=== PATIENT | female | born 1995 | race Caucasian/White ===

== ENCOUNTER 2016-12-20 08:48 | Emergency (ER) | payer BC ==
[2016-12-20 08:53] VITALS: BP 144/100
--- NOTE | 2016-12-20 09:18 | ED ---
Lower Extremity - HPI Summary HPI Summary: Patient presents with right ankle pain and swelling after rolling the ankle when she stepped out of her car in [facility] parking lot. She had immediate pain and swelling but was able to drive herself to the ED. She feels she has mild altered sensation in the foot. She has a history of multiple bilateral ankle injuries and pain. - History of Current Complaint Chief Complaint: EDExtremityLower Stated Complaint: RIGHT ANKLE INJURY Time Seen by Provider: 12/20/16 09:06 Hx Obtained From: Patient Hx Last Menstrual Period: 03/29/16 Mechanism Of Injury: Twisted Onset of Pain: Immediate Onset/Duration: Minutes Severity Initially: Severe Severity Currently: Severe Pain Intensity: 9 Timing: Constant Location: Is Discrete @ - right ankle Character Of Pain: Sharp, Aching, Stiffness Associated Signs And Symptoms: Positive: Swelling Aggravating Factor(s): Standing, Movement Alleviating Factor(s): Rest Able to Bear Weight: No - Allergies/Home Medications Allergies/Adverse Reactions: Allergies Allergy/AdvReac Type Severity Reaction Status Date / Time Ketorolac Tromethamine Allergy Severe See Comment Verified 12/20/16 09:28 [From Toradol] Oxycodone [From Percocet] Allergy Severe seizure-like Verified 12/20/16 09:28 activity Cefprozil [From Cefzil] Allergy Hives Verified 12/20/16 09:28 Codeine Allergy See Comment Verified 12/20/16 09:28 Tramadol Allergy See Comment Verified 12/20/16 09:28 PMH/Surg Hx/FS Hx/Imm Hx Endocrine/Hematology History: Reports: Hx Anemia - CHRONIC- ON IRON Denies: Hx Bone Marrow Disease, Hx Diabetes, Hx Sickle Cell Disease, Hx Thyroid Disease Cardiovascular History: Denies: Hx Congestive Heart Failure, Hx Deep Vein Thrombosis, Hx Hypertension , Hx Myocardial Infarction, Hx Pacemaker/ICD Respiratory History: Reports: Hx Asthma Denies: Hx Chronic Obstructive Pulmonary Disease (COPD), Hx Lung Cancer, Hx Pneumonia, Hx Pulmonary Embolism GI History: Reports: Other GI Disorders - OCC HEARTBURN Denies: Hx Gall Bladder Disease, Hx Gastrointestinal Bleed, Hx Ulcer, Hx Urosepsis History: Denies: Hx Kidney Stones, Hx Renal Disease Sensory History: Reports: Hx Contacts or Glasses - CONTACTS Denies: Hx Hearing Aid Opthamlomology History: Reports: Hx Contacts or Glasses - CONTACTS Neurological History: Reports: Hx Migraine, Hx Seizures - She has seizures with narcotics. Denies: Hx Dementia, Hx Transient Ischemic Attacks (TIA) Psychiatric History: Reports: Hx Depression - ON LEXAPRO FOR PP DEPRESSION Denies: Hx Anxiety, Hx Panic Disorder, Hx Schizophrenia, Hx Bipolar Disorder - Surgical History Surgery Procedure, Year, and Place: tonsillectomy 1998. 08/11/13. nerve decompression 02/06/14 OF ANKLE Hx Anesthesia Reactions: Yes - EPIDURAL WITH CSECTION "DIDNT WORK" NEEDED GENERAL ANESTHESIA - Immunization History Date of Tetanus Vaccine: UTD Date of Influenza Vaccine: NONE Infectious Disease History: No Infectious Disease History: Denies: Hx Clostridium Difficile, Hx Hepatitis, Hx Human Immunodeficiency Virus (HIV), Hx of Known/Suspected MRSA, Hx Shingles, Hx Tuberculosis, Hx Known/ Suspected VRE, Hx Known/Suspected VRSA, History Other Infectious Disease, Traveled Outside the in Last 30 Days - Family History Known Family History: Positive: Hypertension - Social History Occupation: Employed Full-time Lives: With Family Alcohol Use: Rare Substance Use Type: Reports: None Smoking Status (MU): Heavy Every Day Tobacco Smoker Type: Cigarettes Amount Used/How Often: 3-4 CIG/DAY Have You Smoked in the Last Year: Yes Cessation Counseling: Patient Advised to Stop Review of Systems Positive: Myalgia, Decreased ROM, Edema Negative: Paresthesia, Numbness All Other Systems Reviewed And Are Negative: Yes Physical Exam Triage Information Reviewed: Yes Vital Signs On Initial Exam: Initial Vitals Temp Pulse Resp BP Pulse Ox 98.5 F 102 16 144/100 100 12/20/16 08:50 12/20/16 08:50 12/20/16 08:50 12/20/16 08:50 12/20/16 08:50 Vital Signs Reviewed: Yes Appearance: Positive: Well-Appearing, Pain Distress, Obese Skin: Positive: Warm, Skin Color Reflects Adequate Perfusion, Dry, Soft Head/Face: Positive: Normal Head/Face Inspection Eyes: Positive: EOMI, RENATO, Conjunctiva Clear ENT: Positive: Hearing grossly normal Respiratory/Lung Sounds: Positive: Breath Sounds Present Cardiovascular: Positive: RRR Musculoskeletal: Positive: Limited @ - movement in all planes restricted due to pain, Pain @ - TTP lateral malleoli, Edema Right - lateral aspect Neurological: Positive: Sensory/Motor Intact, Alert, Oriented to Person Place, Time, NV Bundle Intact Distally, Unable to Assess Gait Psychiatric: Positive: Affect/Mood Appropriate AVPU Assessment: Alert Diagnostics - Vital Signs Vital Signs Temp Pulse Resp BP Pulse Ox 12/20/16 08:53 98.5 F 102 18 144/100 100 12/20/16 08:50 98.5 F 102 16 144/100 100 - Laboratory Lab Statement: Any lab studies that have been ordered have been reviewed, and results considered in the medical decision making process. - Radiology No standard instances Xray Interpretation: No Acute Changes Radiology Interpretation Completed By: Radiologist Lower Extremity Course/Dx - Diagnoses Differential Diagnosis/HQI/PQRI: Positive: Arthritis, Bursitis, Contusion, Dislocation, Fracture (Closed), Sprain, Strain Provider Diagnoses: Right ankle sprain Discharge - Discharge Plan Condition: Stable Disposition: HOME Patient Education Materials: Ankle Sprain (ED) Forms: *Work Release Referrals: Alyce Navarro NP [Primary Care Provider] - Additional Instructions: Wear your splint to protect you as your pain improves. Come out of the splint several times daily to perform gentle range of motion exercises to avoid stiffness. Elevate your ankle above your heart and apply ice for 20 minutes several times daily to decrease swelling and pain. Use ibuprofen 600mg three times daily with meals for the next 5-7 days to decrease swelling and pain as well. Follow-up with your primary care provider in 7-10 days if your symptoms do not begin to improve. Return to the emergency department if your symptoms worsen.
[2016-12-20] MEDS ORDERED: Ondansetron ODT TAB* 4 MG PO ONE (09:32)
[2016-12-20] MEDS ORDERED: HYDROcodone/ACETAMIN 5-325 MG* 1 TAB PO ONE (09:32)
--- NOTE | 2016-12-20 09:59 | RAD ---
INDICATION: Right ankle injury. TECHNIQUE: 3 views of the right ankle were obtained. FINDINGS: Soft tissue swelling is noted along the anterolateral aspect of the ankle. There is an osteochondral lesion involving the superior lateral articular surface of the talus. There is a fracture fragment in place which appears nondisplaced measuring 5 x 2.5 mm in size. Joint spaces appear maintained. IMPRESSION: OSTEOCHONDRAL FRACTURE OF THE ANTEROLATERAL TALUS.
== END 2016-12-20 11:12 | disposition home or self-care (01) ==
LOC: ED 08:48
DX: S93.401A Sprain of unspecified ligament of right ankle, initial encounter (principal); X50.9XXA Other and unspecified overexertion or strenuous movements or postures, initial encounter; F32.9 Major depressive disorder, single episode, unspecified; F17.210 Nicotine dependence, cigarettes, uncomplicated; D64.9 Anemia, unspecified; Y92.481 Parking lot as the place of occurrence of the external cause; Z88.5 Allergy status to narcotic agent
CPT/HCPCS: 99282; A9270-GY

== ENCOUNTER 2017-07-25 12:51 | Emergency (ER) | payer BC ==
[2017-07-25 13:14] VITALS: BP 136/77
--- NOTE | 2017-07-25 13:30 | UC ---
Lower Extremity/Ankle HPI - HPI Summary HPI Summary: 21 y/o female presents to the urgent care c/o Rt ankle pain and swelling s/p getting out of the bath tubs and twisting her ankle last night. Pt reports she has Hx of 3 fractures to Rt ankle, one is 2010, 07/2013 and 12/2016. She was just finished PT. Pt states pain is sharp, 8/10 with movement with mild numbness an tinglin over the pinky toe. Pt took ibuprofen 800mg PO last night and applied ice. Pt is able to bear weight. Pt denies fever, redness, SOB, chest pain, abdominal pain, N/V/D. LMP: 07/09/2017, declines test. - History of Current Complaint Chief Complaint: UCLowerExtremity Stated Complaint: ANKLE INJURY Time Seen by Provider: 07/25/17 13:29 Hx Obtained From: Patient Hx Last Menstrual Period: 2 weeks ago ?: No Onset/Duration: Sudden Onset, Lasting Days - 1 day, Still Present, Worse Since - last night Severity Initially: Moderate Severity Currently: Moderate Pain Intensity: 8 Pain Scale Used: 0-10 Numeric Aggravating Factor(s): Ambulation Alleviating Factor(s): Rest, Ice, OTC Meds Able to Bear Weight: Yes - Risk Factors Gout Risk Factors: Negative DVT Risk Factors: Negative Septic Arthritis Risk Factor: Negative - Allergies/Home Medications Allergies/Adverse Reactions: Allergies Allergy/AdvReac Type Severity Reaction Status Date / Time Cefprozil [From Cefzil] Allergy Hives Verified 07/25/17 13:14 Ketorolac Tromethamine AdvReac Severe See Comment Verified 07/25/17 13:14 [From Toradol] Oxycodone [From Percocet] AdvReac Severe seizure-like Verified 07/25/17 13:14 activity Codeine AdvReac See Comment Verified 07/25/17 13:14 Tramadol AdvReac See Comment Verified 07/25/17 13:14 Home Medications: Home Medications metFORMIN* [Glucophage 500 MG TAB *] 500 mg PO BID 07/25/17 [History Confirmed 07/25/17] PMH/Surg Hx/FS Hx/Imm Hx Previously Healthy: Yes Other Endocrine History: PCOS Other History Of: Negative For: HIV, Hepatitis B, Hepatitis C - Surgical History Surgical History: Yes Surgery Procedure, Year, and Place: tonsillectomy 1998. 08/11/13. nerve decompression 02/06/14 OF LEFT ANKLE - Family History Known Family History: Positive: Hypertension, Diabetes - Social History Lives: With Family Alcohol Use: Rare Substance Use Type: None Smoking Status (MU): Heavy Every Day Tobacco Smoker Type: Cigarettes Amount Used/How Often: 1/2 PPD DAY Have You Smoked in the Last Year: Yes Review of Systems Constitutional: Negative Skin: Negative Eyes: Negative ENT: Negative Respiratory: Negative Cardiovascular: Negative Gastrointestinal: Negative Genitourinary: Negative Motor: Decreased ROM - RT ankle Neurovascular: Negative Musculoskeletal: Other: - RT ankle pain and swelling Neurological: Negative Psychological: Negative Is Patient Immunocompromised?: No All Other Systems Reviewed And Are Negative: Yes Physical Exam Triage Information Reviewed: Yes Vital Signs: Initial Vital Signs Temp 97.7 F 07/25/17 13:11 Pulse 78 07/25/17 13:11 Resp 18 07/25/17 13:11 BP 136/77 07/25/17 13:11 Pulse Ox 100 07/25/17 13:11 - Additional Comments Vital Signs Reviewed: Yes General: well developed, well nourished female, sitting in the examining table w /o any apparent distress Eyes: Positive: Conjunctiva Clear - PERRLA, EOMI, ENT: Positive: Normal ENT inspection, Hearing grossly normal, Pharynx normal, TMs normal Neck: Positive: Supple, Nontender, No Lymphadenopathy Respiratory: Positive: Chest non-tender, Lungs clear, Normal breath sounds, No respiratory distress Cardiovascular: Positive: RRR, No Murmur, Pulses Normal, Brisk Capillary Refill Abdomen Description: Positive: Nontender, No Organomegaly, Soft. Negative: CVA Tenderness (R), CVA Tenderness (L) Bowel Sounds: Positive: Present Musculoskeletal: - RT Ankle: Pt is able to bear weight and ambulate w/ limping. The R ankle is without obvious asymmetry or deformity when compared to the L ankle. Decrease ROM due to pain. Moderate swelling on both malleollus with tenderness to palpation. No ecchymosis or bruising observed. Talar tilt test is negative for ligament laxity to valgus or varus stress. Negative anterior drawer. Peroneal nerve is intact with strong eversion and plantar flexion. Positive sensation over the Rt foot and Rt ankle, positive pulses, decree sensation over the #5th toe, positive capillary refill intact Neurological Exam: Normal Psychological Exam: Normal Skin: warm and dry Lower Extremity Course/Dx - Course Course Of Treatment: 21 y/o female presents to the urgent care c/o Rt ankle pain and swelling s/p getting out of the bath tubs and twisting her ankle last night. Pt reports she has Hx of 3 fractures to Rt ankle, one is 2010, 07/2013 and 12/2016. She was just finished PT. Pt states pain is sharp, 8/10 with movement with mild numbness an tinglin over the pinky toe. Pt took ibuprofen 800mg PO last night and applied ice. Pt is able to bear weight. Pt denies fever , redness, SOB, chest pain, abdominal pain, N/V/D.LMP: 07/09/2017, declines test. Hx obtained. Rt ankle X-ray ordered, Impression: No Soft tissue swelling, no acute fracture. Pt most likely with a RT ankle Sprain. Pt immobilized with gel ankle splint to , advised to use her crutches at home to avoid weight bearing, Rx Ibuprofen PO to decrease swelling and pain. Pt advised RICE, take Ibuprofen PO for pain and to f/u with PCP on orthopedic Dr Crane in 1 week if not improvement of symptoms for further treatment. Pt understood and agreed with D/C instructions. Pt given excuse for work. - Differential Dx/Diagnosis Differential Diagnosis/HQI/PQRI: Arthritis, Contusion, Fracture (Closed), Sprain , Strain, Tendonitis Provider Diagnoses: 1- Acute RT ankle pain s/p injury Discharge - Discharge Plan Condition: Stable Disposition: HOME Prescriptions: Ibuprofen TAB* [Motrin TAB* 800 MG] 800 mg PO Q6H PRN #20 tab PRN Reason: Pain Patient Education Materials: Ankle Sprain (ED) Forms: *Work Release Referrals: Soham Crane MD [Medical Doctor] - 1 Week Alyce Navarro NP [Primary Care Provider] - 2 Days Additional Instructions: 1-Please take medications as directed to alleviate pain and swelling. 2-Please apply ice, keep your ankle immobilized with the Mingo bandage. Use your crutches to avoid weight bearing. Avoid strenuous exercise or standing for long periods of time 3- Please f/u with your PCP in 2-3 days if not improvement of symptoms for further evaluation and treatment. 4- If you develop fever, severe pain with swelling please go immediately to the ER for further management
[2017-07-25] MEDS ORDERED: Ibuprofen TAB* 400 MG PO ONE (13:42)
--- NOTE | 2017-07-25 14:04 | RAD ---
HISTORY: Right ankle pain, injury COMPARISONS: February 17, 2017 VIEWS: 3, Frontal, lateral, and oblique views of the right ankle FINDINGS: BONE DENSITY: Normal. BONES: There is no displaced fracture. JOINTS: There is no arthropathy. ALIGNMENT: There is no dislocation. SOFT TISSUES: Unremarkable. OTHER FINDINGS: None. IMPRESSION: NO ACUTE OSSEOUS INJURY. IF SYMPTOMS PERSIST, RECOMMEND REPEAT IMAGING.
== END 2017-07-25 14:40 | disposition home or self-care (01) ==
LOC: UCEAST 12:51
DX: M25.571 Pain in right ankle and joints of right foot (principal); X50.0XXA Overexertion from strenuous movement or load, initial encounter; Y93.89 Activity, other specified; Y92.002 Bathroom of unspecified non-institutional (private) residence as the place of occurrence of the external cause; Y99.9 Unspecified external cause status; Z87.81 Personal history of (healed) traumatic fracture; Z72.0 Tobacco use
CPT/HCPCS: 99213; A9270-GY; G0463

== ENCOUNTER 2017-09-11 09:28 | Emergency (ER) | payer BC ==
--- OUTSIDE RECORDS SUMMARY | 2017-09-11 09:34 | XMS REPORT ---
:1995 External Reference #:[id number] Author Organization [facility] Address [address] [address] Phone [phone] Care Team Providers Name Role Phone Alyce Navarro NP Primary Care Physician Unavailable Payers Type Date Identification Numbers Payment Subscriber Provider Health Maintenance Effective: Policy Number: [employer] [facility] Feng Pineda [facility] [place] [place] 08/09/2016 [id number] Group Number: [id number] [address] [address] PayID: [id number] CHANTAL Yadav 12785 Medigap Part B Expires: 08/08/2016 Policy Number: [employer] [facility] Feng Pineda [id number] [facility] Group Number: [id number] [address] [address] PayID: [id number] CHANTAL Yadav 18427 Problems Date Description Provider Status Onset: 09/07/2017 Difficulty breathing Med Ervin M.D. Active Onset: 09/07/2017 Insomnia Med Ervin M.D. Active Onset: 09/07/2017 Seizure Med Ervin M.D. 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 ETOH Use Denies alcohol use Smoking Patient is a current smoker, smokes 1/2 pack per day every day Recreational Drug Use Denies Drug Use Exercise Type/Frequency Does not exercise Allergies, Adverse Reactions, Alerts Date Description Reaction Status Severity Comments 11/17/2013 Tramadol active 11/17/2013 Toradol active 11/17/2013 Dilaudid active 11/17/2013 Percocet active 11/17/2013 Oxycodone active 11/17/2013 Cefzil active 11/17/2013 Epidural Medication active 12/23/2016 Codeine active Medications Medication Date Status Form Strength Qnty SIG Indications Ordering Provider Ibuprofen 04/30/ Active Tablets 800mg 90tabs by mouth Unknown 2015 three times a day as needed Topiramate 09/04/ Active Tablets 100mg 60tabs take one Miguelopher 2015 tablet by Shorty Ervin mouth twice a day Metformin / Active Tablets 500mg 1 by mouth Unknown HCL 0000 twice a day Lisinopril-H / Active Tablets 10-12.5mg 1 by mouth Unknown ydrochloroth 0000 every day iazide Ventolin 04/30/ Hx Nebulizer 0.083% Q4H Unknown 2015 - 2016 Advair 04/30/ Hx Aerosol 250-50mcg/ 1units Twice Unknown Diskus 2016 - Dose Daily prn 2016 Lake 02/14/ Hx Tablets 5-325mg 60tabs take 08/10 Vimal 2013 - to one tab Shorty Barnett 12/22/ every 4-6 2017 hours as needed for pain Trinessa / Hx Tablets 0.18/0.215 1 tablet Unknown (28) 0000 - /0.25 each day 12/22/ mg-35 mcg 2016 Lexapro / Hx Tablets 20mg 1 by mouth Unknown 0000 - every day 2016 Iron / Hx Tablets 325 1 by mouth Unknown 0000 - every day 2016 Magnesium / Hx Capsules 500-3000-1 Unknown & 0000 - 50mg-Unit- Vitamin 12/21/ mg D3/Turmeric 2016 Hydrocodone- / Hx Tablets 5-325mg 30tabs 1 tab po q Vimal Acetaminophe 0000 - 6 hours Shorty Branett n 12/29/ prn 2016 Zofran // Hx Tablets 4mg take 1 by Unknown 0000 - mouth 02/15/ twice a 2017 day as needed for nausea Nuvaring / Hx Ring 0.12-0.015 Insert One Unknown 0000 - mg/24HR Ring 07/10/ Vaginally 2017 Every Three Weeks as Directed Vital Signs Date Vital Result Comment 09/07/2017 Height 67 inches 5'7" Weight 235.00 lb Heart Rate 88 /min BP Systolic 122 mmHg BP Diastolic 70 mmHg Respiratory Rate 16 /min BMI (Body Mass Index) 36.8 kg/m2 04/28/2017 Height 67 inches 5'7" Weight 250.00 lb Heart Rate 76 /min BP Systolic Sitting 116 mmHg BP Diastolic Sitting 78 mmHg Respiratory Rate 20 /min Pain Level 0 BMI (Body Mass Index) 39.2 kg/m2 03/17/2017 Height 67 inches 5'7" Weight 250.00 lb Heart Rate 78 /min BP Systolic Sitting 102 mmHg BP Diastolic Sitting 64 mmHg Respiratory Rate 12 /min Pain Level 7 BMI (Body Mass Index) 39.2 kg/m2 02/17/2017 Height 67 inches 5'7" Weight 247.00 lb Heart Rate 64 /min BP Systolic Sitting 130 mmHg BP Diastolic Sitting 80 mmHg Respiratory Rate 20 /min Pain Level 8 BMI (Body Mass Index) 38.7 kg/m2 02/03/2017 Height 67 inches 5'7" Weight 250.00 lb BP Systolic 116 mmHg BP Diastolic 68 mmHg Respiratory Rate 17 /min Pain Level 9 BMI (Body Mass Index) 39.2 kg/m2 12/30/2016 Height 67 inches 5'7" Weight 250.00 lb Heart Rate 83 /min BP Systolic Sitting 122 mmHg BP Diastolic Sitting 72 mmHg Respiratory Rate 16 /min Pain Level 6 sitting BMI (Body Mass Index) 39.2 kg/m2 12/23/2016 Height 67 inches 5'7" Weight 250.00 lb Heart Rate 77 /min BP Systolic Sitting 116 mmHg BP Diastolic Sitting 74 mmHg Respiratory Rate 16 /min Pain Level 10 BMI (Body Mass Index) 39.2 kg/m2 12/20/2016 Height 67 inches Weight 250.00 lb Heart Rate 102 /min BP Systolic 144 mmHg BP Diastolic 100 mmHg Respiratory Rate 18 /min Body Temperature 98.5 F O2 % BldC Oximetry 100 % BMI (Body Mass Index) 39.1 kg/m2 03/13/2014 Height 67 inches 5'7" Weight 226.00 lb Heart Rate 69 /min BP Systolic 132 mmHg BP Diastolic 55 mmHg BMI (Body Mass Index) 35.4 kg/m2 03/02/2014 Height 67 inches 5'7" Weight 226.00 lb Body Temperature 99.0 F BMI (Body Mass Index) 35.4 kg/m2 02/14/2014 Height 67 inches 5'7" Weight 220.00 lb BMI (Body Mass Index) 34.5 kg/m2 01/04/2014 Height 67 inches 5'7" Heart Rate 68 /min BP Systolic 123 mmHg BP Diastolic 82 mmHg 11/30/2013 Height 67 inches 5'7" Weight 200.00 lb Heart Rate 66 /min BP Systolic 126 mmHg BP Diastolic 74 mmHg BMI (Body Mass Index) 31.3 kg/m2 11/17/2013 Height 67 inches 5'7" Weight 194.00 lb Heart Rate 81 /min BP Systolic 114 mmHg BP Diastolic 67 mmHg BMI (Body Mass Index) 30.4 kg/m2 Results Test Date Test Result H/L Range Note Laboratory test finding 02/26/2014 Urine Negative Negative 1 1 If is still suspected, please repeat test after 48 to 72 hours. This test detects intact HCG only and is indicated for the early detection of . Procedures Date CPT Code Description Status 02/17/2017 97178 Rad Exam; Ankle Limited Completed 12/23/2016 47485 Rad Exam; Foot Comp Completed 12/23/2016 19325 Short Leg Cast Completed 02/26/2014 82753 Decompress Nerve Unspec Completed 02/26/2014 69097 Decompress Nerve Unspec Completed Encounters Type Date Location Provider CPT E/M Dx Office Visit 09/07/2017 [facility] Med Ervin, 28155 G43.719 8:30a [facility] R56.9 G47.00 R06.83 Office Visit 04/28/2017 1:00p [facility] Barnett 63850 S93.401[facility] Office Visit 03/17/2017 1:00p [facility] Barnett 48902 S93.401D [facility] M76.71 Office Visit 02/17/2017 1:15p [facility] Barn[facility] 40017 S93.401D [facility] Office Visit 02/03/2017 3:15p [facility] 52644 M93.271 [facility] 12/30/2016 1:45p [facility] Barn[facility] 86913 M93.271 [facility] S93.401D Office Visit 12/23/2016 10:30a [facility] Barn[facility], 32718 M93.271 [facility] Office Visit 01/04/2014 1:30p [facility] Barn[facility], 57711 355.6 [facility] [place] Office Visit 11/30/2013 1:30p [facility], 50612 719.47 C.[facility] Office Visit 11/17/2013 10:00a [facility], 18445 719.47 C.[facility]. [facility] Plan of Care Future Appointment(s):10/18/2017 9:15 am - Med Ervin M.D. at [place]09/07/2017 - Med Ervin M.D.G43.719 Chronic migraine w/o aura, intractable, w/o stat migrNew Labs:Topamax (Topiramate)Basic Metabolic PanelFollow up:Follow up 4 weeks after irrmbopO12.9 Unspecified convulsionsNew Xrays:MRI Brain W/ONew Orders:EEG, QawebrgA01.00 Insomnia, unspecifiedNew Orders:Sleep StudyReferral:Ana Redding MD, Pulmonary WudeyqvlR04.83 SnoringReferral:Ana Redding MD, Pulmonary Diseases
--- OUTSIDE RECORDS SUMMARY | 2017-09-11 09:35 | XMS REPORT ---
:1995 External Reference #:[id number] Author Organization [facility] Address [address] [place] [id number] Phone [phone] Care Team Providers Name Role Phone Alyce Naavrro N.P. Care Team Information Strap Stitcher Unavailable Payers Type Date Identification Numbers Payment Provider Subscriber Health Maintenance Effective: Policy Number: [facility] Setup ([facility]) 08/09/2013 [id number] Group Number: [id number] [address] PayID: [id number] [place] [phone] Health Maintenance Effective: Policy Number: [facility] Enzo/FHP/CHP Effie Willams [facility] ([facility]) 03/09/2013 [id number] Expires: 11/06/2013 Group Number: [id number] [address] PayID: [id number] [place] [place] [phone] Problems Date Description Provider Status Onset: 08/13/2014 Pleurisy Alyce Navarro, N.P. Active Onset: 08/22/2015 Asthma Alyce Navarro, N.P. Active Onset: 08/22/2015 Tobacco user Alyce Navarro, N.P. Active Onset: 09/02/2015 Migraine Alyce Navarro, N.P. Active Onset: 09/08/2016 Polycystic ovaries Alyce Navarro, N.P. Active Onset: 08/30/2017 Obesity Alyce Navarro, N.P. Active Family History Date Family Member(s) Problem(s) Comments Father Unknown Mother Good Health First Daughter Good Health First Brother Good Health Paternal Grandfather Melanoma Paternal Grandfather also great pat garndmother had melanoma Maternal Grandmother Melanoma Social History Type Date Description Comments Lives With Boyfriend Lives With Brother Lives With Mother Lives With Stepfather Lives With Daughter Maicol Anton Jr. Cigarette Use current cigarette smoker Smoking Patient is a current smoker, smokes every day Allergies, Adverse Reactions, Alerts Date Description Reaction Status Severity Comments 12/21/2006 Cefzil active 04/28/2011 Codeine active 05/09/2012 Tramadol active 12/27/2013 Toradol active Medications Medication Date Status Form Strength Qnty SIG Indications Ordering Provider Lisinopril-[place] 08/30 Active Tablets 10-12.5mg 30tabs 1 by Ramon chlorothi mouth Mashelle, every day N.P. Metformin HCL 06/22 Active Tablets 500mg 60tabs take one tablet by Alyce, mouth N.P. twice a day Topiramate Active Tablets 100mg 1 po bid Lisinopril 08/16 Hx Tablets 10mg 30tabs 1 by mouth Mashelle, - every day N.P. 08/30 Sulfamethoxazole 05/03 Hx Tablets 800-160mg 20tabs 1 by Ramon /Trimethoprim mouth Massalazarle, - twice a N.P. Metrogel-Vaginal 09/10 Hx Gel 0.75% 70gm one appl per Alyce, - vagina N.P. 06/07 night at bedtime x 5d Work Note 09/08 Hx no work today Alyce, - (09/08/16) N.P. 06/07 medical reasons may return to [employer] work tomorrow (09/09/16) Nuvaring 09/08 Hx Ring 0.12-0.01 1units insert 1 5mg/24HR ring Alyce, - vaginally N.P. 06/07 every weeks as directed Work Note 02/12 [facility] N.P. 09/08 alberto work on 02/17/16 Topamax 08/22 Hx Tablets 25mg 60tabs 1 by mouth Massuresh, - twice a N.P. Avelox 08/13 Hx Tablets 400mg 10tabs 1 by mouth Mashelle, - every day N.P. 08/22 x 10 days Tessalon 08/13 Hx Capsules 200mg 30caps 1 by mouth Mashelle, - three N.P. 08/22 times a day prn cough Augmentin 05/17 Hx Tablets 875-125mg 20tabs 1 po bid x 10 days Massalazarle, - N.P. 08/13 Zithromax Z-Carrillo 01/16 Hx Tablets 250mg 1Pak as directed Massuresh, - N.P. 05/17 Robitussin DM 01/16 Hx Syrup 100-10mg/ 237ml 1-2 5ML teaspoons Alyce, - q 4-6h N.P. 08/13 prn cough Physical Therapy 12/03 Hx eval and treat r Alyce, - shoulder N.P. 08/13 pain Work Note 12/03 Hx no work 12/03/14-5 Alyce, - /11/21 N.P. 12/10 Ibuprofen 12/03 Hx Tablets 600mg 24tabs 1 by mouth Mashelle, - four N.P. 06/07 times day with food Cyclobenzaprine 11/30 Hx Tablets 10mg 15tabs take one tablet by Massuresh, - mouth N.P. 12/03 times a day Indomethacin 11/30 Hx Capsules 50mg 30caps 1 by mouth Mashelle, - three N.P. 11/30 times a day with food Prednisone 11/30 Hx Tablets 10mg 30tabs 4 by mouth x 3 Mashelle, - days, N.P. 11/30 then 3 by mouth x 3 days then 2 by mouth x 3 days then 1 by mouth x 3 days Prednisone 11/30 Hx Tablets 50mg 3tabs 1 by mouth Mashelle, - every day N.P. 12/03 x 3 Work Note 10/31 Hx no work 03/18-03/19 Mashelle, - /15 N.P. 08/13 Prozac 10/18 Hx Capsules 20mg 30caps 1 by mouth Mashelle, - every day N.P. 08/22 Nuvaring 10/18 Hx Ring 0.12-0.01 3units insert 5mg/24HR one ring Massuresh, - vaginally N.P. 02/12 three weeks Advair Diskus 08/13 Hx Aerosol 250-50mcg sample 1 inhale /Dose twice a Mashelle, - day N.P. 06/07 Proair HFA 08/13 Hx Aerosol 108(90Bas 1units 2 puffs e) four Mashelle, - mcg/Act times a N.P. 06/07 day needed Avelox 08/13 Hx Tablets 400mg 1 by mouth Mashel, - every day N.P. 08/20 x 10 days Zithromax Z-Carrillo 06/25 Hx Tablets 250mg 1tabs as directed Alyce, - N.P. 08/13 Mupirocin 01/03 Hx Ointment 2% 22gm apply to affcted Alyce, - area bid N.P. 06/25 Augmentin 01/03 Hx Tablets 875-125mg 20tabs 1 po bid x 10 days lAyce, - N.P. 06/25 Zofran Odt 12/27 Hx Tablets 4mg 12tabs 1-2 tabs Dispers tid prn Alyce, - nausea N.P. 06/25 Indomethacin 12/27 Hx Capsules 50mg 15caps 1 po tid with food Alyce, - N.P. 06/25 Escitalopram 10/31 Hx Tablets 20mg 30tabs 1 po q hs Ramon, Mashelle, - N.P. 06/25 Magnesium Oxide 09/12 Hx Tablets 400mg 30tabs 1 po qd Ramon, Renele, - N.P. 06/25 Rosignol Cream 09/01 Hx Mashelle, - N.P. 09/01 Mupirocin 06/01 Hx Ointment 2% 22gm apply to affcted Renele, - area bid N.P. 09/12 Work Note 08/08 Hx no work 08/06/12- Massalazarle, - 08/11/12 N.P. 04 for medical reasons Tessalon 06/21 Hx Capsules 200mg 21caps 1 po tid prn Mashelle, - N.P. 01/10 Dextromethorphan 06/21 Hx Solution 20-200mg/ 200ml 2 , /Guai 10ML teaspoons Renele, - q 4-6h N.P. 01/10 prn cough School Note 06/21 Hx No school , 06/21/12- Massalazarle, - 06/22/12 N.P. 0604 for medical reasons Ibuprofen 05/09 Hx Tablets 800mg 40tabs 1 po qid Ramon with food Mashelle, - N.P. 01/10 Fluocinonide 02/10 Hx Cream 0.05% 30gm apply sparingly Mashelle, - three N.P. 04 times a day Augmentin 12/14 Hx Tablets 500-125mg 20tabs 1 po q 12 hours x Massalazarle, - 10 days N.P. 02/10 Fexofenadine HCL 12/10 Hx Tablets 180mg 30tabs 1 po qd Mashelle, - N.P. 09/12 Xyzal 12/09 Hx Tablets 5mg 30tabs 1 po qd Mashelle, - N.P. 12/10 Ibuprofen 12/09 Hx Tablets 600mg 24tabs 1 po qid [place] with food Mashelle, - N.P. 05/09 Zithromax Z-Carrillo 05/27 Hx Tablets 250mg 1tabs as directed Mashelle, - N.P. 12/09 Prednisone 05/01 Hx Tablets 50mg 3tabs 1 po qd x Ramon 3 days Alyce, - N.P. 05/27 Proventil HFA 04/28 Hx Aerosol 108(90Bas 1units 2 puffs e) mcg/ac qid Alyce, - N.P. 09/12 Advair Diskus 04/28 Hx Aerosol 250-50mcg 1disc 1 inhale /Dose bid Alyce, - N.P. 09/12 Zithromax Z-Carrillo 04/24 Hx Tablets 250mg 1tabs as directed Alyce, - N.P. 05/01 Tylenol W 04/24 Hx 480ml 1-2 , Codeine 12MG/5c teaspoons Alyce, - q 6 hours N.P. 04/28 pr Work Note 04/24 Hx no work 04/25/11-9 Alyce, - N.P. 0503 for medical reasons School Note 04/24 Hx seen in office Alyce, - today for N.P. 12/09 reasons Lotrisone 12/03 Hx Cream 1-0.05% 45gm apply tid to Alyce, - affected N.P. 12/09 School Note 08/11 Hx no school Ramon08/11/10-1/ Alyce, - 11/17 for N.P. 12/03 reasons Bactroban 07/02 Hx Ointment 2% 22gm apply bid as Alyce, - directed N.P. 12/03 Zithromax 06/26 Hx Suspension 200mg/5ML 32ml 2 08/10 Rec tsp day Alyce - one, then N.P. 07/02 1 08/12 tsp. qd x 4 days Physical Therapy 06/05 Hx eval and Ramon treat Alyce, - back pain N.P. 12/09 dx: pain Floxin Otic 05/12 Hx Solution 0.3% 10ml 10 gtts r Ramon ear qd x Alyce, - 5 days N.P. 12/09 Macrodantin 05/07 Hx Capsules 100mg 28caps 1 po qid [place] X 7 Days Alyce, - N.P. 05/12 School Note 04/24 Hx patient may have Alyce, - ibuprofen N.P. 04/29 400mg /2009 every 6 hours prn while in school Physical Therapy 04/10 Hx eval and Ramon treat Alyce, - back pain N.P. 04/29 dx: pain Soma 04/10 Hx Tablets 350mg 40tabs 1 po qid Ramon Alyce, - N.P. 04/29 Skelaxin 04/10 Hx Tablets 800mg 20tabs 1 po qid Ramon prn Alyce - N.P. 04/29 Metformin HCL 03/18 Hx Tablets 500mg 90tabs tid c Ramon meals Alyce, - N.P. 12/09 Hydrocodone/Acet 03/18 Hx Tablets 7.5-500mg 12tabs 1po qid Kaitlynn aminophen prn Tyson Eubanks MD 04/01 Restrictions 03/18 Hx kidney Ludin infection Tyson Eubanks MD 04/01 restrict on walking only for 2 weeks Bactrim DS 09/23 Hx Tablets 800-160mg 14tabs 1 po bid Kaitlynn X 7 Day Tyson Eubanks MD 04/01 Excuse 07/18 Hx excuse 009.0 Kaitlynn school Kyler Rossi - 07/15,8,9, 09/18 10 bug Ocuflox 06/21 Hx Solution 0.3% 5ml 1 qtt to affected Alyce, - eye(s) q N.P. 07/18 4 hours /2008 for 2 days then qid x 5 days Celebrex 04/24 Hx Capsules 200mg samples 1 po qd Ramon Alyce, - N.P. 07/18 Tylenol/Codeine 04/24 Hx Tablets 300-30mg 24tabs 1 -2 po q [place], # 4-6 hours Mashelle, - prn pain N.P. 07/18 Augmentin 04/30 Hx Tablets 500mg 10tabs 1 po q Ramon, 12hrs x 5 Mashelle, - days N.P. 05/05 School Note 06/03 Hx no gym or [place], sports Mashelle, - 06/03/07- N.P. 07/1806/10/07 for medical reasons Diflucan 12/21 Hx Tablets 150mg 1tabs One Tab Ramon, PO Times Mashelle, - One Day N.P. 07/18 Diflucan 12/13 Hx Tablets 150mg 1tabs One Tab [place], PO Times Mashelle, - One Day N.P. 12/14 Singulair 01/07 Hx Tablets 10mg 60tabs 1 po q pm , Mashelle, - N.P. 07/18 CT Request 12/[address] head , Mashelle, - N.P. 07/18 Dx: new onset headaches Amoxil 06/29 Hx Capsules 500mg 20caps 1 po q 12 hrs x 10 Mashelle, - days N.P. 12/24 Minocin 12/09 Hx Capsules 100mg 180caps 1 po q , 12h Mashelle, - N.P. 07/18 Bactroban 11/27 Hx Ointment 2% 22gm apply bid as Mashelle, - directed N.P. 12/24 Topamax Hx Tablets 50mg 1 po bid Unknown /0000 - 09/08 Medications Administered in Office Medication Date Status Form Strength Qnty SIG Indications Ordering Provider PPD Administered Injection Nurses 7 Schedule [place] PPD Administered Injection [place], 5 Mashelle, N.P. PPD Administered Injection Nurses 2 Schedule [place] PPD Administered Injection Ramon, 2 Mashelle, N.P. PPD Administered Injection Ramon, 2 Mashelle, N.P. PPD Administered Injection Kaitlynn, 0 Kyler Rossi MD Immunizations CPT Code Status Date Vaccine Reaction Lot # [id number] Given 06/22/2017 Influenza Vac, 3 Yrs & Older, [id number] Quadrivalent, [place], [place] Use [address] Given 05/01/2010 Tdap (Adacel) Ages 7 And Above Only [id number] 49014 Given 04/29/2010 Afluria Or Fluvirin Flu Vac * [id number] Intramuscular 77017 Given 09/28/2007 HPV Vaccine (Gardasil) 3 Dose Schedule 77483 Given 09/28/2007 HPV Vaccine (Gardasil) 3 Dose Schedule [id number] 14896 Given 02/24/2007 HPV Vaccine (Gardasil) 3 Dose Schedule 06546 Given 12/21/2006 Meningococcal Immunization [id number] 94820 Given 12/21/2006 HPV Vaccine (Gardasil) 3 Dose Schedule [id number] 87860 Given 01/11/1999 IPV / Poliomyelitis Immunization 90491 Given 01/11/1999 MMR Virus Immunization 28367 Given 01/11/1999 DTaP Immunization 7 Yrs & Younger [id number] 64446 Given 09/03/1995 Varicella (Chicken Pox) Immunization 26635 Given 03/18/1995 Hib HbOC Conjugate 4 Dose Schedule 56142 Given 12/24/1994 DTaP Immunization 7 Yrs & Younger [id number] 52360 Given 09/11/1994 MMR Virus Immunization 22749 Given 07/04/1994 Hepatitis B Vac Ped/Adolescent 3 Dose Schedule 84735 Given 03/09/1994 IPV / Poliomyelitis Immunization 33964 Given 03/09/1994 DTaP Immunization 7 Yrs & Younger [id number] 82595 Given 01/07/1994 IPV / Poliomyelitis Immunization 15502 Given 01/07/1994 DTaP Immunization 7 Yrs & Younger [id number] 61570 Given 01/07/1994 Hib HbOC Conjugate 4 Dose Schedule 30397 Given 1993 Hepatitis B Vac Ped/Adolescent 3 Dose Schedule 86799 Given 1993 IPV / Poliomyelitis Immunization 34297 Given 1993 DTaP Immunization 7 Yrs & Younger [id number] 07859 Given 1993 Hib HbOC Conjugate 4 Dose Schedule 46740 Given 1993 Hepatitis B Vac Ped/Adolescent 3 Dose Schedule Vital Signs Date Vital Result Comment 08/30/2017 Body Temperature 98.1 F Weight 237.38 lb Heart Rate 120 /min BP Systolic 138 mmHg BP Diastolic 76 mmHg O2 % BldC Oximetry 95 % 08/16/2017 Body Temperature 98.1 F Weight 250.00 lb Heart Rate 88 /min BP Systolic 142 mmHg BP Diastolic 98 mmHg 07/06/2017 Body Temperature 98.1 F Weight 237.12 lb Heart Rate 90 /min BP Systolic 138 mmHg BP Diastolic 80 mmHg O2 % BldC Oximetry 97 % 06/22/2017 Body Temperature 99.0 F Weight 234.50 lb Heart Rate 69 /min BP Systolic 120 mmHg BP Diastolic 76 mmHg O2 % BldC Oximetry 98 % 06/07/2017 Body Temperature 98.8 F Weight 232.12 lb Heart Rate 70 /min BP Systolic 119 mmHg BP Diastolic 82 mmHg O2 % BldC Oximetry 98 % 05/03/2017 Body Temperature 99.0 F Weight 235.25 lb Heart Rate 72 /min BP Systolic 142 mmHg BP Diastolic 90 mmHg O2 % BldC Oximetry 98 % 09/08/2016 Body Temperature 97.7 F Weight 248.25 lb Heart Rate 94 /min BP Systolic 138 mmHg BP Diastolic 89 mmHg Height 67 inches 5'7" O2 % BldC Oximetry 98 % BMI (Body Mass Index) 38.9 kg/m2 02/13/2016 Body Temperature 98.6 F Weight 238.00 lb Heart Rate 77 /min BP Systolic 110 mmHg BP Diastolic 80 mmHg O2 % BldC Oximetry 98 % 12/10/2015 Body Temperature 98.1 F Weight 246.25 lb Heart Rate 77 /min BP Systolic 132 mmHg BP Diastolic 82 mmHg O2 % BldC Oximetry 95 % 09/11/2015 Body Temperature 97.9 F Weight 236.50 lb Heart Rate 80 /min BP Systolic 120 mmHg BP Diastolic 76 mmHg O2 % BldC Oximetry 98 % 09/02/2015 Body Temperature 98.2 F Weight 239.12 lb Heart Rate 85 /min BP Systolic 118 mmHg BP Diastolic 70 mmHg O2 % BldC Oximetry 96 % 08/22/2015 Body Temperature 97.7 F Weight 240.00 lb Heart Rate 79 /min BP Systolic 140 mmHg BP Diastolic 80 mmHg O2 % BldC Oximetry 98 % 08/13/2015 Body Temperature 97.9 F Weight 242.50 lb Heart Rate 91 /min BP Systolic 124 mmHg BP Diastolic 78 mmHg O2 % BldC Oximetry 98 % 05/17/2015 Body Temperature 98.6 F Weight 239.00 lb Heart Rate 91 /min BP Systolic 133 mmHg BP Diastolic 86 mmHg O2 % BldC Oximetry 98 % 01/16/2015 Body Temperature 98.2 F Weight 232.38 lb Heart Rate 60 /min BP Systolic 128 mmHg BP Diastolic 84 mmHg O2 % BldC Oximetry 99 % 01/14/2015 Body Temperature 98.6 F Weight 230.25 lb Heart Rate 78 /min BP Systolic 120 mmHg BP Diastolic 78 mmHg Height 67 inches 5'7" BMI (Body Mass Index) 36.1 kg/m2 12/10/2014 Body Temperature 99.0 F Weight 230.00 lb Heart Rate 94 /min BP Systolic 128 mmHg BP Diastolic 76 mmHg O2 % BldC Oximetry 98 % 12/03/2014 Body Temperature 97.9 F Weight 238.12 lb Heart Rate 65 /min BP Systolic 133 mmHg BP Diastolic 80 mmHg O2 % BldC Oximetry 99 % 11/30/2014 Body Temperature 98.2 F Weight 237.38 lb Heart Rate 76 /min BP Systolic 124 mmHg BP Diastolic 76 mmHg O2 % BldC Oximetry 98 % 10/18/2014 Body Temperature 98.4 F Weight 240.50 lb Heart Rate 96 /min BP Systolic 120 mmHg BP Diastolic 80 mmHg O2 % BldC Oximetry 97 % 08/20/2014 Body Temperature 98.1 F Weight 234.25 lb Heart Rate 93 /min BP Systolic 110 mmHg BP Diastolic 78 mmHg O2 % BldC Oximetry 96 % 08/13/2014 Body Temperature 97.9 F Weight 235.25 lb Heart Rate 93 /min 81 After Treatment BP Systolic 130 mmHg BP Diastolic 82 mmHg O2 % BldC Oximetry 98 % 97 After Treatment 06/25/2014 Body Temperature 99.7 F Weight 248.38 lb Heart Rate 129 /min BP Systolic 120 mmHg BP Diastolic 80 mmHg O2 % BldC Oximetry 99 % 01/03/2014 Body Temperature 98.8 F Weight 220.50 lb Heart Rate 65 /min BP Systolic 120 mmHg BP Diastolic 80 mmHg O2 % BldC Oximetry 98 % 12/27/2013 Body Temperature 98.2 F Weight 214.38 lb Heart Rate 90 /min BP Systolic 112 mmHg BP Diastolic 72 mmHg O2 % BldC Oximetry 98 % 12/12/2013 Body Temperature 98.7 F Weight 219.00 lb Heart Rate 83 /min BP Systolic 130 mmHg BP Diastolic 80 mmHg O2 % BldC Oximetry 98 % 11/09/2013 Body Temperature 97.8 F Weight 217.00 lb Heart Rate 78 /min BP Systolic 130 mmHg BP Diastolic 70 mmHg 10/31/2013 Body Temperature 97.8 F Weight 219.00 lb Heart Rate 78 /min BP Systolic 120 mmHg BP Diastolic 80 mmHg O2 % BldC Oximetry 97 % 09/21/2013 Body Temperature 98.3 F Weight 214.50 lb Heart Rate 91 /min BP Systolic 118 mmHg BP Diastolic 80 mmHg O2 % BldC Oximetry 98 % 09/12/2013 Body Temperature 97.4 F Weight 213.00 lb Heart Rate 81 /min BP Systolic 120 mmHg BP Diastolic 80 mmHg O2 % BldC Oximetry 95 % 09/01/2013 Body Temperature 98.3 F Weight 214.12 lb Heart Rate 78 /min BP Systolic 122 mmHg BP Diastolic 78 mmHg O2 % BldC Oximetry 98 % 06/01/2013 Body Temperature 97.6 F Weight 219.00 lb Heart Rate 87 /min BP Systolic 110 mmHg BP Diastolic 80 mmHg O2 % BldC Oximetry 98 % 01/10/2013 Body Temperature 97.7 F Weight 227.12 lb Heart Rate 95 /min BP Systolic 132 mmHg BP Diastolic 64 mmHg O2 % BldC Oximetry 98 % 06/21/2012 Body Temperature 97.3 F Weight 233.25 lb Weight Percentile >97th Heart Rate 79 /min BP Systolic 118 mmHg BP Diastolic 64 mmHg O2 % BldC Oximetry 99 % 05/20/2012 Body Temperature 97.5 F Weight 233.38 lb Weight Percentile >97th Heart Rate 98 /min BP Systolic 122 mmHg BP Diastolic 70 mmHg O2 % BldC Oximetry 98 % 05/09/2012 Body Temperature 98.0 F Weight 241.12 lb Weight Percentile >97th Heart Rate 68 /min BP Systolic 120 mmHg BP Diastolic 70 mmHg O2 % BldC Oximetry 98 % 04/01/2012 Body Temperature 98.1 F Weight 238.25 lb Weight Percentile >97th Heart Rate 77 /min BP Systolic 118 mmHg BP Diastolic 60 mmHg Respiratory Rate 20 /min Height 66 inches 5'6" Height Percentile 75 % BMI (Body Mass Index) 38.5 kg/m2 Body Mass Index Percentile 98 % 02/11/2012 Body Temperature 97.9 F Weight 244.38 lb Weight Percentile >97th Heart Rate 71 /min BP Systolic 120 mmHg BP Diastolic 68 mmHg O2 % BldC Oximetry 98 % 12/15/2011 Body Temperature 97.3 F Weight 255.25 lb Weight Percentile >97th Heart Rate 79 /min BP Systolic 102 mmHg BP Diastolic 60 mmHg O2 % BldC Oximetry 98 % 12/10/2011 Body Temperature 98.1 F Weight 252.00 lb Weight Percentile >97th Heart Rate 114 /min BP Systolic 120 mmHg BP Diastolic 70 mmHg O2 % BldC Oximetry 98 % 10/26/2011 Body Temperature 97.6 F Weight 256.00 lb Weight Percentile >97th Heart Rate 118 /min BP Systolic 140 mmHg BP Diastolic 78 mmHg O2 Saturation Level with Exercise 98 % 05/27/2011 Body Temperature 98.1 F Weight 253.00 lb Weight Percentile >97th Heart Rate 104 /min BP Systolic 128 mmHg BP Diastolic 80 mmHg O2 % BldC Oximetry 99 % 05/11/2011 Body Temperature 97.9 F Weight 251.00 lb Weight Percentile >97th Heart Rate 105 /min BP Systolic 132 mmHg BP Diastolic 78 mmHg O2 % BldC Oximetry 98 % 05/01/2011 Body Temperature 98.3 F Weight 254.00 lb Weight Percentile >97th Heart Rate 78 /min BP Systolic 124 mmHg BP Diastolic 64 mmHg O2 % BldC Oximetry 99 % 04/28/2011 Body Temperature 98.2 F Weight 254.00 lb Weight Percentile >97th Heart Rate 72 /min BP Systolic 108 mmHg BP Diastolic 68 mmHg O2 % BldC Oximetry 95 % 04/24/2011 Body Temperature 98.4 F Weight 255.00 lb Weight Percentile >97th Heart Rate 103 /min BP Systolic 112 mmHg BP Diastolic 68 mmHg O2 % BldC Oximetry 99 % 12/03/2010 Body Temperature 98.8 F Weight 260.00 lb Weight Percentile >97th Heart Rate 130 /min BP Systolic 140 mmHg BP Diastolic 70 mmHg O2 % BldC Oximetry 98 % 09/22/2010 Body Temperature 98.5 F Heart Rate 72 /min BP Systolic 130 mmHg BP Diastolic 70 mmHg Respiratory Rate 18 /min 08/11/2010 Body Temperature 99.2 F Weight 250.00 lb Weight Percentile >97th Heart Rate 97 /min BP Systolic 126 mmHg BP Diastolic 78 mmHg O2 % BldC Oximetry 98 % 07/10/2010 Body Temperature 98.4 F Weight 251.00 lb Weight Percentile >97th Heart Rate 77 /min BP Systolic 120 mmHg BP Diastolic 70 mmHg Height 66.5 inches 5'6.50" Height Percentile 82 % O2 % BldC Oximetry 98 % BMI (Body Mass Index) 39.9 kg/m2 Body Mass Index Percentile 99 % 07/02/2010 Body Temperature 98.2 F Weight 247.00 lb Weight Percentile >97th Heart Rate 72 /min BP Systolic 120 mmHg BP Diastolic 60 mmHg O2 % BldC Oximetry 98 % 06/26/2010 Body Temperature 98.2 F Weight 246.00 lb Weight Percentile >97th Heart Rate 72 /min BP Systolic 126 mmHg BP Diastolic 72 mmHg Height 66.5 inches 5'6.50" Height Percentile 82 % O2 % BldC Oximetry 98 % BMI (Body Mass Index) 39.1 kg/m2 Body Mass Index Percentile 98 % 05/22/2010 Body Temperature 98.3 F Heart Rate 80 /min BP Systolic 118 mmHg BP Diastolic 70 mmHg O2 % BldC Oximetry 96 % 05/12/2010 Body Temperature 97.5 F Weight 245.00 lb Weight Percentile >97th Heart Rate 96 /min BP Systolic 120 mmHg BP Diastolic 70 mmHg O2 % BldC Oximetry 98 % 04/29/2010 Weight 243.00 lb Weight Percentile >97th BP Systolic 116 mmHg BP Diastolic 72 mmHg Height 66.25 inches 5'6.25" Height Percentile 80 % BMI (Body Mass Index) 38.9 kg/m2 Body Mass Index Percentile 98 % 04/23/2010 Weight 247.00 lb Weight Percentile >97th Heart Rate 78 /min BP Systolic 120 mmHg BP Diastolic 70 mmHg 04/10/2010 Body Temperature 98.0 F Weight 243.00 lb Weight Percentile >97th Heart Rate 70 /min BP Systolic 128 mmHg BP Diastolic 60 mmHg 04/01/2010 Weight 244.38 lb Weight Percentile >97th Heart Rate 78 /min BP Systolic 120 mmHg BP Diastolic 62 mmHg 03/18/2010 Body Temperature 98.9 F Weight 242.38 lb Weight Percentile >97th Heart Rate 71 /min BP Systolic 108 mmHg BP Diastolic 70 mmHg O2 % BldC Oximetry 98 % 11/20/2009 Body Temperature 98.3 F Weight 248.00 lb Weight Percentile >97th Heart Rate 80 /min BP Systolic 110 mmHg BP Diastolic 70 mmHg Height 65.25 inches 5'5.25" Height Percentile 68 % O2 % BldC Oximetry 99 % BMI (Body Mass Index) 40.9 kg/m2 Body Mass Index Percentile 99 % 09/18/2009 Body Temperature 97.5 F Weight 246.00 lb Weight Percentile >97th Heart Rate 100 /min BP Systolic 148 mmHg BP Diastolic 84 mmHg Height 65.25 inches 5'5.25" Height Percentile 68 % O2 % BldC Oximetry 100 % BMI (Body Mass Index) 40.6 kg/m2 Body Mass Index Percentile 99 % 07/18/2009 Body Temperature 98.5 F Weight 241.00 lb Weight Percentile >97th Heart Rate 90 /min BP Systolic 118 mmHg BP Diastolic 78 mmHg Height 66 inches 5'6" Height Percentile 78 % O2 % BldC Oximetry 98 % BMI (Body Mass Index) 38.9 kg/m2 Body Mass Index Percentile 99 % 06/21/2009 Body Temperature 98.6 F BP Systolic 128 mmHg BP Diastolic 80 mmHg 04/24/2009 Body Temperature 98.3 F Weight 236.00 lb Weight Percentile >97th Heart Rate 76 /min BP Systolic 132 mmHg BP Diastolic 84 mmHg Height 65.5 inches 5'5.50" Height Percentile 73 % BMI (Body Mass Index) 38.7 kg/m2 Body Mass Index Percentile 99 % 04/30/2008 Body Temperature 97.7 F Weight 223.00 lb Weight Percentile >97th Heart Rate 66 /min BP Systolic 131 mmHg BP Diastolic 77 mmHg Height 65.75 inches 5'5.75" Height Percentile 79 % BMI (Body Mass Index) 36.3 kg/m2 Body Mass Index Percentile 97 % 05/30/2007 Weight 244.00 lb Weight Percentile >97th Heart Rate 67 /min BP Systolic 115 mmHg BP Diastolic 76 mmHg 05/03/2007 Body Temperature 97.4 F Weight 241.00 lb Weight Percentile >97th Heart Rate 84 /min BP Systolic 120 mmHg BP Diastolic 60 mmHg 02/24/2007 Weight 233.00 lb Weight Percentile >97th Heart Rate 84 /min BP Systolic 120 mmHg BP Diastolic 80 mmHg 12/10/2006 Weight 225.00 lb Weight Percentile >97th Heart Rate 78 /min BP Systolic 120 mmHg BP Diastolic 78 mmHg 01/07/2006 Body Temperature 98.3 F Weight 202.00 lb Weight Percentile >95th Heart Rate 76 /min BP Systolic 110 mmHg BP Diastolic 74 mmHg 12/24/2005 Body Temperature 98.3 F Weight 203.00 lb Weight Percentile >95th Heart Rate 80 /min BP Systolic 116 mmHg BP Diastolic 60 mmHg 06/29/2005 Body Temperature 98.0 F Weight 188.00 lb Weight Percentile >95th Heart Rate 76 /min BP Systolic 124 mmHg BP Diastolic 66 mmHg 12/09/2004 Body Temperature 98.8 F Weight 171.00 lb Weight Percentile >95th Heart Rate 88 /min BP Systolic 108 mmHg BP Diastolic 64 mmHg 11/27/2004 Body Temperature 98.6 F Weight 171.00 lb Weight Percentile >95th Heart Rate 80 /min BP Systolic 118 mmHg BP Diastolic 50 mmHg Results Test Date Test Result H/L Range Note Comprehensive Met Panel-[facility] 06/07/2017 Sodium 142 mmol/L 135-146 1 Potassium 4.3 mmol/L 3.5-5.2 Chloride# 105 mmol/L 97-110 2 Carbon Dioxide 24 mmol/L 24-34 Glucose 119 mg/dL High 70-105 Creatinine 0.9 mg/dL 0.5-1.4 Calcium 9.6 mg/dL 8.5-10.2 Total Protein 7.2 g/dL 6.0-8.0 Albumin 4.3 g/dL 3.6-4.9 Globulin 2.9 g/dL 2.0-3.5 A/G Ratio 1.5 Ratio 1.0-2.2 Total Bilirubin 0.4 mg/dL 0.1-1.3 Alkaline Phosphatase 99 U/L 24-140 Alt 67 U/L High 3-42 Ast 38 U/L 8-42 Coby Egfr >60 >60 3 Non Coby Egfr >60 >60 4 Anion Gap 13 mmol/L 7-16 5 BUN 6 mg/dL 6-26 Laboratory test finding 06/07/2017 TSH 0.89 uIU/mL 0.35-4.94 CBC With Auto Diff 06/07/2017 WBC 9.7 K/uL 4.1-11.0 RBC 4.78 M/uL 4.00-5.40 Hemoglobin 14.0 gm/dL 12.0-16.0 Hematocrit 41.6 % 36.0-47.0 MCV 86.9 fL 80.0-97.0 MCH 29.4 pg 27.0-32.0 MCHC 33.8 g/dL 32.0-36.0 RDW 14.0 % 11.5-14.5 PLT Count 205 K/ul 140-400 MPV 8.5 FL 7.1-10.7 Neutrophil 65.8 % 35.0-75.0 Lymphocyte 26.1 % 16.0-52.0 Monocyte 5.9 % 2.0-10.0 Eosinophil 2.0 % 0.0-5.0 Basophil 0.2 % 0.0-4.0 Abs Neutrophils 6.4 K/uL 2.1-8.0 Abs Lymphocytes 2.5 K/uL 0.8-5.5 Abs Monocytes 0.6 K/uL 0.1-1.0 Abs Eosinophils 0.2 K/uL 0.0-0.5 Abs Basophils 0.0 K/uL 0.0-0.3 Wound Culture-RL 05/03/2017 Wound Culture SEE NOTE 6, 7 GC/Chlamydia By Dna Probe 09/08/2016 Chlamydia by Dna Probe NEGATIVE Negative GC by Dna Probe NEGATIVE Negative Comprehensive Metabolic (CMP) 09/08/2016 Sodium 139 mmol/L 134-142 8 Potassium 4.7 mmol/L 3.5-5.2 8 Chloride 105 mmol/L 97-109 8 Carbon Dioxide 26 mmol/L 24-34 8 Glucose 97 mg/dL 70-105 8 BUN 10 mg/dL 6-26 8 Creatinine 0.7 mg/dL 0.5-1.4 8 Calcium 9.1 mg/dL 8.5-10.2 8 Total Protein 7.0 g/dL 6.0-8.0 8 Albumin 4.2 g/dL 3.6-4.9 8 Globulin 2.8 g/dL 2.0-3.5 8 A/G Ratio 1.5 Ratio 1.0-2.2 8 Total Bilirubin 0.3 mg/dL 0.1-1.3 8 Alkaline Phosphatase 80 U/L 24-140 8 Alt 41 U/L 3-42 8 Ast 31 U/L 8-42 8 Anion Gap 13 mmol/L 6-14 8 Coby Egfr >60 >60 8, 9 Non Coby Egfr >60 >60 8, 10 Lipid 09/08/2016 Cholesterol 155 mg/dL 50-199 8 Triglycerides 151 mg/dL 30-200 8 HDL 38 mg/dL 35-85 8, 11 Chol/ HDL Ratio 4.1 ratio 3.7-5.6 8 VLDL 30 mg/dL High 2-29 8 LDL (Calc) 87 mg/dL 20-99 8, 12 Laboratory test finding 09/08/2016 TSH 1.09 uIU/mL 0.35-4.94 8 Affirm 09/08/2016 Trichomonas Vaginalis Negative Negative 8 Gardnerella Vaginalis Positive Negative 8 Arcelia Species Negative Negative 8 Laboratory test 09/08/2016 [facility] Pap SEE NOTE 13 finding Laboratory test 09/08/2016 HCG,Quant Preg <1 mU/mL 8, 14 finding Laboratory test 09/08/2016 Hiv1 PCR <pending&gt finding Qualitative-RL ; Laboratory test 12/12/2013 HCG,Quant Preg <1 MIU/ML 8, 15 finding Laboratory test 09/01/2013 D-Dimer,Sensitive 2040 NG/ML High (<350) 8 , 16 finding Laboratory test 06/01/2013 Wound Culture SEE NOTE 17 finding Laboratory test 05/20/2012 Surgical Path [facility] SEE NOTE 18 finding CBC With Auto Diff 05/11/2011 WBC 10.8 K/uL 4.1-11.0 8 RBC 4.99 M/uL 4.00-5.40 8 Hemoglobin 13.3 gm/dL 12.0-16.0 8 Hematocrit 39.8 % 36.0-47.0 8 MCV 79.8 fL Low 80.0-97.0 8 MCH 26.5 pg Low 27.0-32.0 8 MCHC 33.3 g/dL 32.0-36.0 8 RDW 16.2 % High 11.5-14.5 8 PLT Count 246 K/ul 140-400 8 Neutrophil 71.7 % 35.0-75.0 8 Lymphocyte 20.8 % 16.0-52.0 8 Monocyte 4.8 % 2.0-10.0 8 Eosinophil 2.2 % 0.0-5.0 8 Basophil 0.5 % 0.0-4.0 8 Abs Neutrophils 7.8 K/uL 2.1-8.0 8 Abs Lymphocytes 2.2 K/uL 0.8-5.5 8 Abs Monocytes 0.5 K/uL 0.1-1.0 8 Abs Eosinophils 0.2 K/uL 0.0-0.5 8 Abs Basophils 0.1 K/uL 0.0-0.3 8 Laboratory test finding 05/11/2011 TSH 0.75 uIU/mL 0.34-5.60 8 HCG,Quant Preg Cancelled 8, 19 Laboratory test finding 05/11/2011 HCG,Quant Preg <1 MIU/ML 8, 20 Laboratory test finding 05/22/2010 Urine Culture NO GROWTH Xray 05/13/2010 MRI, Spinal Canal, <pending> Lumbar, No Contr Gram Negative 04/29/2010 Ampicillin (Am) SENSITIVE 21 Sensitivity Ampicillin/Sulbactam (Sridhar) SENSITIVE 21 Cefazolin (CZ) SENSITIVE 21 Ceftriaxone (Electrical And Instrumentation Manager SENSITIVE 21 Ciprofloxacin (Cip) SENSITIVE 21 Nitrofurantoin (FT) SENSITIVE 21 Trimethoprim/Sulfamethoxazole (SXT) SENSITIVE 21 Laboratory test finding 04/29/2010 Urine Culture >100,000 CFU/ML 21 , 22 <SEE NOTE> Preliminary Ur. Culture Result GRAM NEGATIVE RO <SEE NOTE> 21, 23 CBC With Auto Diff 04/29/2010 WBC 10.3 K/ul 4.5-13.5 21 RBC 4.69 M/ul 4.10-5.30 21 Hemoglobin 12.6 GM/dl 12.0-15.0 21, 24 Hematocrit 38.3 % 35.0-45.0 21 MCV 81.5 FL 78.0-95.0 21 MCH 27.0 pg 26.0-32.0 21 MCHC 33.1 g/dL 32.0-36.0 21 RDW 15.9 % High 11.5-14.5 21 Platelet Count 228 K/ul 140-440 21 Neutrophils 68.6 % 50-70 21 Lymphocytes 20.4 % 20-44 21 Monocytes 5.5 % 2-9 21 Eosinophil 3.0 % 0-4 21 Basophil 2.5 % High 0-2 21 Absolute Neutrophils 7.0 K/ul 2.05-7.63 21 Absolute Lymphocytes 2.1 K/ul 0.8-4.8 21 Absolute Monocytes 0.6 K/ul 0.1-1.0 21 Absolute Eosinophils 0.3 K/ul 0.1-0.5 21 Absolute Basophils 0.3 K/ul 0.0-0.3 21 Hematology Comment (Comm2) N/A 21 Laboratory test finding 04/29/2010 Rubella Antibody, Igg -LA 45.7 IU/mL , Rubeola (Measles) Antibody Igg-LA 0.97 ELFA , 26 Rubella Antibody Igm -RL 04/29/2010 Rubella Igm AB N/A 21 Rubella Igm AB 0.46 IV 21, 27 Xray 04/02/2010 Chest, 2 Views <pending> Laboratory test finding 09/18/2009 [facility] Pap - LA (SEE NOTE) 28 GC By Dna Probe NEGATIVE Negative Urine Culture >100,000 CFU/ML <SEE NOTE> 29 Vaginitis Direct Test(Affirm) -LA (SEE NOTE) 30 Preliminary Ur. Culture Result GRAM NEGATIVE RO <SEE NOTE> 31 Gram Negative Sensitivity 09/18/2009 Ampicillin (Am) SENSITIVE Ampicillin/Sulbactam (Sridhar) SENSITIVE Cefazolin (CZ) SENSITIVE Ceftriaxone (Electrical And Instrumentation Manager SENSITIVE Ciprofloxacin (Cip) SENSITIVE Nitrofurantoin (FT) SENSITIVE Trimethoprim/Sulfamethoxazole (SXT) SENSITIVE Testosterone,FR Female/Child-RL 05/05/2007 Testosterone Free-LA 10.4 High 32 Laboratory test finding 05/05/2007 LH 8.61 mIU/ml 33 TSH 1.44 uIU/ml 0.34-5.60 FSH 7.06 mIU/ml 34 Prolactin 9.34 ng/ml 35 Vaginal/Cerv Culture -LA 12/10/2006 Specimen Description - LA N/A Special Requests - LA N/A Result - LA N/A Report Status - LA N/A CBC With Auto Diff 12/24/2005 WBC 8.9 K/ul 4.5-13.5 RBC 4.78 M/ul 4.10-5.30 Hemoglobin 12.9 GM/dl 12.0-15.0 Hematocrit 37.8 % 35.0-45.0 MCV 79.0 FL 78.0-95.0 MCH 26.9 pg 26.0-32.0 MCHC 34.1 g/dL 32.0-36.0 RDW 13.2 % 11.5-14.5 Platelet Count 255 K/ul 140-440 Neutrophils 56.5 % 50-70 Lymphocytes 31.0 % 20-44 Monocytes 8.5 % 2-9 Eosinophil 3.6 % 0-4 Basophil 0.4 % 0-2 Absolute Neutrophils 5.0 K/ul 2.05-7.63 Absolute Lymphocytes 2.8 K/ul 0.8-4.8 Absolute Monocytes 0.8 K/ul 0.1-1.0 Absolute Eosinophils 0.3 K/ul 0.1-0.5 Absolute Basophils 0.0 K/ul Low 0.1-0.3 Laboratory test finding 12/24/2005 TSH 1.14 uIU/ml 0.50-6.00 1 Updated reference range on new analyzer 2 Updated reference range on new analyzer 3 Concerning GFR Guidelines for Americans: Normal function or mild renal disease, if clinically at risk: >/=60 mL/min Moderately decreased: 30-59 Severely decreased: 15-29 Renal failure: <15 4 Concerning GFR Guidelines: Normal function or mild renal disease, if clinically at risk: >/=60 mL/min Moderately decreased: 30-59 Severely decreased: 15-29 Renal failure: <15 Glomerular Filtration Rate (GFR) is estimated based on the MDRD equation, which assumes a steady state for creatinine as recommended by the National Kidney Disease Education Program in conjunction with the National Institutes of Health and the National Kidney Foundation. Clinical conditions in which it may be necessary to measure GFR by using clearance methods include extremes of age and body size, severe malnutrition or obesity, diseases of skeletal muscle, paraplegia or quadriplegia, vegetarian diet, rapidly changing kidney function, and calculation of the dose of potentially toxic drugs that are excreted by the kidneys. 5 Updated reference range on new analyzer 6 left lower abdomen. abcess culture 7 SPECIMEN DESCRIPTION ABSCESS SPECIAL REQUESTS NONE GRAM STAIN NO WHITE BLOOD CELLS NO BACTERIA CULTURE RESULTS RARE MIXED GRAM POSITIVE ERNESTO NOTE: BIOCHEMICAL IDENTIFICATION SYSTEMS WERE SET UP ON SUSPECT COLONIES TO R/O PATHOGENS. REPORT STATUS FINAL 05/05/2017 Unless otherwise specified, testing performed by [facility] [address] [place] [id number] 8 This sample is drawn by:JONH/AUGUSTIN 9 Concerning GFR Guidelines for Americans: Normal function or mild renal disease, if clinically at risk: >/=60 mL/min Moderately decreased: 30-59 Severely decreased: 15-29 Renal failure: <15 10 Concerning GFR Guidelines: Normal function or mild renal disease, if clinically at risk: >/=60 mL/min Moderately decreased: 30-59 Severely decreased: 15-29 Renal failure: <15 Glomerular Filtration Rate (GFR) is estimated based on the MDRD equation, which assumes a steady state for creatinine as recommended by the National Kidney Disease Education Program in conjunction with the National Institutes of Health and the National Kidney Foundation. Clinical conditions in which it may be necessary to measure GFR by using clearance methods include extremes of age and body size, severe malnutrition or obesity, diseases of skeletal muscle, paraplegia or quadriplegia, vegetarian diet, rapidly changing kidney function, and calculation of the dose of potentially toxic drugs that are excreted by the kidneys. 11 Per NCEP ATP III Guidelines: Results lower than 40 mg/dL are suggestive of increased risk for coronary artery disease. Results > or=to 60 mg/dL are considered a negative risk factor. 12 Per NCEP ATP III Guidelines: Normal Population <130 Patients with medical conditions: CHD/DM Optimal: <100 Borderline high: 130-159 High: 160-189 Very high: >189 13 Security Scorecard [employer]. [facility] [place] [address] CYTOLOGY REPORT Source of Specimen(s): [facility] Vaginal / Cervical Pap Smear - One Vial Date of Last Menstrual Period: PCOS Other Clinical Conditions: Last Pap Smear: 1st pap REFLEX TO HPV ASSAY IF RESULTS OF THIS PAP ARE ASCUS Specimen Adequacy SATISFACTORY FOR EVALUATION PRESENCE OF ENDOCERVICAL/TRANSFORMATION ZONE COMPONENT General Categorization NEGATIVE FOR INTRAEPITHELIAL LESION OR MALIGNANCY Interpretation NEGATIVE FOR INTRAEPITHELIAL LESION OR MALIGNANCY Reported: 09/10/2016 10:11 Electronically Signed Out By Roz CARR(ASCP) heriberto ICD9 Code: Z01.419 Unless otherwise specified, testing performed by [facility] [place] [address] [place] [address] 14 INTERPRETATION: LESS THAN 6 NEGATIVE 6 - 10 BORDERLINE (SUGGEST REPEAT IN 48 HOURS) APPROX HCG RANGE WEEKS POST LMP 11 - 130 3 - 4 WEEKS 75 - 2600 4 - 5 WEEKS 850 - 41711 5 - 6 WEEKS 4000 - 894550 6 - 7 WEEKS 73259 - 984757 7 - 12 WEEKS 83229 - 816540 12 - 16 WEEKS 1400 - 49936 16 - 29 WEEKS 940 - 10573 29 - 41 WEEKS Unless otherwise specified, testing performed by [facility] [address] [place] [id number] 15 INTERPRETATION: LESS THAN 6 NEGATIVE 6 - 10 BORDERLINE (SUGGEST REPEAT IN 48 HOURS) APPROX HCG RANGE WEEKS POST LMP 11 - 130 3 - 4 WEEKS 75 - 2600 4 - 5 WEEKS 850 - 36973 5 - 6 WEEKS 4000 - 147308 6 - 7 WEEKS 60061 - 480057 7 - 12 WEEKS 22628 - 845720 12 - 16 WEEKS 1400 - 76386 16 - 29 WEEKS 940 - 94740 29 - 41 WEEKS Unless otherwise specified, testing performed by [facility] [address] [place] [address] [id number] 16 Unless otherwise specified, testing performed by [facility] [address] [place] [id number] 17 SPECIMEN DESCRIPTION ABSCESS SPECIAL REQUESTS NONE GRAM STAIN NO WHITE BLOOD CELLS NO EPITHELIAL CELLS NO BACTERIA CULTURE RESULTS RARE MIXED GRAM POSITIVE ERNESTO REPORT STATUS FINAL 06/03/2013 Unless otherwise specified, testing performed by [facility] [address] [place] [id number] [address] [place] [address] Surgical Pathology Report Specimen(s) Received A: Right upper chest Clinical Diagnosis and History Gross Description Specimen received in formalin labeled with the patient's name is a 0.4 x 0.4 x 0.3 cm wrinkled brown papule. The specimen is inked, bisected and totally submitted in one cassette. (The measurements of the specimen may be less than those in vivo due to tissue shrinkage during histologic fixation and processing.) paw dme/mwg Diagnosis SKIN, RIGHT UPPER CHEST: Compound nevus. Multiple levels examined. Technical component processed at [facility], Histopathology, [address] [place] [address], [id number]. Diagnosis and reporting performed at [facility], [address] [place] [address]. Reported: 05/25/2012 11:39 Electronically Signed Out By Vimal Almanzar MD paw ICD9 Codes 216.5 Unless otherwise specified, testing performed by [facility] [place] [address] 19 Ordered in Duplicate 20 INTERPRETATION: LESS THAN 6 NEGATIVE 6 - 10 BORDERLINE (SUGGEST REPEAT IN 48 HOURS) APPROX HCG RANGE WEEKS POST LMP 11 - 130 3 - 4 WEEKS 75 - 2600 4 - 5 WEEKS 850 - 12668 5 - 6 WEEKS 4000 - 783578 6 - 7 WEEKS 53732 - 528785 7 - 12 WEEKS 20627 - 589603 12 - 16 WEEKS 1400 - 85429 16 - 29 WEEKS 940 - 52222 29 - 41 WEEKS Unless otherwise specified, testing performed by [facility] [place] [address] 21 This sample is drawn by:AUGUSTIN FOSETR 22 >100,000 CFU/ML ESCHERICHIA COLI 23 GRAM NEGATIVE BEN ISOLATED, ID & SENSITIVITY TO FOLLOW 24 COLD AGGLUTININ WAS SUSPECTED SPECIMEN WAS WARMED FOR 1 HOUR AT 37 CELSIUS PRIOR TO ANALYSIS. DS 25 RUBELLA INTERPRETATION: NEGATIVE <10.0 IU/ML BORDERLINE 10.0 - 14.9 IU/ML POSITIVE > OR=15.0 IU/ML VALUES OF 15.0 IU/ML OR GREATER INDICATE IMMUNIZATION OR PAST INFECTION. BORDERLINE RESULTS ARE CONFIRMED. THE MAGNITUDE OF THE REPORTED IGG LEVEL CANNOT BE CORRELATED TO AN ENDPOINT TITER. Unless otherwise specified, testing performed by [facility] [place] [address] 26 MEASLES INTERPRETATION: NEGATIVE <0.50 ELFA UNITS BORDERLINE 0.50 - 0.69 ELFA UNITS LOW LEVEL 0.70 - 1.90 ELFA UNITS MED. LEVEL 1.91 - 2.70 ELFA UNITS HIGH LEVEL >2.70 ELFA UNITS VALUES OF 0.70 OR GREATER INDICATE IMMUNIZATION OR PAST INFECTION. BORDERLINE RESULTS ARE CONFIRMED IN DUPLICATE. Unless otherwise specified, testing performed by [facility] [place] [address] 27 REFERENCE INTERVAL: Rubella Ab, IgM 0.89 IV or less........... Negative-No significant level of detectable Rubella IgM antibody. 0.90 - 1.09 IV ........... Equivocal-Repeat testing in 10-14 days may be helpful. 1.10 IV or greater........ Positive-IgM antibody to Rubella detected which may indicate a current or recent infection or immunization. Testing immediately post-exposure is of no value without a later convalescent specimen. While the presence of IgM antibodies suggest current or recent infection, low levels of IgM antibodies may occasionally persist for more than 12 months post-infection or immunization. Performed by [facility], [address] [place] [id number] [email or web address], Liliana Garcia MD, Lab. Director Unless otherwise specified, testing performed by [facility] [place] [address] 28 Security Scorecard [facility] [employer] [facility]. [facility] [place] [address] GYNECOLOGIC CYTOLOGY REPORT Accession Number: [id number] Source of Specimen(s): A: [facility] Vaginal / Cervical Pap Smear - One Vial Clinical Diagnosis and History: Date of Last Menstrual Period: unsure Other Clinical Conditions: Last Pap Smear: 1st Pap REFLEX TO DIGENE HPV ASSAY IF RESULTS OF THIS PAP ARE ASCUS Specimen Adequacy Satisfactory for evaluation Presence of endocervical/transformation zone component General Categorization Negative for intraepithelial lesion or malignancy Interpretation NEGATIVE FOR INTRAEPITHELIAL LESION OR MALIGNANCY Reported: 09/23/2009 Electronically Signed Out By Jaimie CARR(ASCP) [facility] lxd ICD9 Code: V72.31 616.10 Unless otherwise specified, testing performed by [facility] [place] [address] 29 >100,000 CFU/ML ESCHERICHIA COLI 30 SPECIMEN DESCRIPTION GENITAL RESULT NEGATIVE FOR TRICHOMONAS VAGINALIS NEGATIVE FOR GARDNERELLA VAGINALIS NEGATIVE FOR ARCELIA SPECIES REPORT STATUS FINAL 09/19/2009 Unless otherwise specified, testing performed by [facility] [place] [address] 31 GRAM NEGATIVE BEN ISOLATED, ID & SENSITIVITY TO FOLLOW 32 Reference range: 0.9 to 6.8 Unit: pg/mL The performance characteristics of this test were validated by [facility] The U.S. Food and Drug Administration (FDA) has not approved this test. The results are not intended to be used as the sole means for clinical diagnosis or patient management decisions. [facility] is authorized under Clinical Laboratory Improvement Amendments (CLIA) and by all states to perform high-complexity testing. Performed by [facility], [facility] [place] [address] www[email or web address], Stanley Sargent MD - Lab. Director 33 Lutenizing Hormone Female Normals: Mid-Follicular: 2.1-10.9 mIU/ml Mid-cycle Peak: 19.2-103.0 mIU/ml Mid-Luteal: 1.2-12.9 mIU/ml Postmenopausal: 10.9-58.6 mIU/ml 34 FSH Female Normal Values: Mid-Follicular: 3.9-8.8 mIU/ml Mid-cycle Peak: 4.5-22.5 mIU/ml Mid-Luteal: 1.8-5.1 mIU/ml Post menopausal: 16.7-113.6 mIU/ml 35 Prolactin Female Normal Values: Pre-menopausal: 3.3-26.7 ng/ml Post-menopausal: 2.7-19.6 ng/ml Procedures Date CPT Code Description Status 06/22/2017 54177 Admin Of Inj (Therapeutic Phrophylactic Or Diagnostic Completed Subq Inj 08/13/2015 18968 Measure Blood Oxygen Level Single Determination Completed 05/17/2015 51014 Measure Blood Oxygen Level Single Determination Completed 01/16/2015 67791 Measure Blood Oxygen Level Single Determination Completed 08/20/2014 73190 Measure Blood Oxygen Level Single Determination Completed 08/13/2014 66260 Measure Blood Oxygen Level Single Determination Completed 06/25/2014 65948 Measure Blood Oxygen Level Single Determination Completed 06/01/2013 50663 I & D Abscess Simple Completed 06/21/2012 09710 Measure Blood Oxygen Level Single Determination Completed 05/20/2012 92171 Excise Benign Lesion <.6CM Trunk/Arm/Leg Completed 05/27/2011 93673 Measure Blood Oxygen Level Single Determination Completed 05/01/2011 79782 Measure Blood Oxygen Level Single Determination Completed 04/28/2011 28403 Measure Blood Oxygen Level Single Determination Completed 04/24/2011 27738 Measure Blood Oxygen Level Single Determination Completed 05/01/2010 94108 Admin Of Inj (Therapeutic Phrophylactic Or Diagnostic Completed Subq Inj 04/29/2010 55505 Admin Of Inj (Therapeutic Phrophylactic Or Diagnostic Completed Subq Inj Encounters Type Date Location Provider CPT E/M Dx Office Visit 08/16/2017 8:45a Alyce Schwarz, N.P. 04240 E66.9 I10 Office Visit 07/06/2017 8:30a Alyce Schwarz, N.P. 15404 G43.109 Office Visit 06/22/2017 8:30a Alyce Schwarz, N.P. 63226 E28.2 E66.9 Z23 Office Visit 06/07/2017 9:45a Alyce Schwarz, N.P. 23391 F39 R53.83 E66.9 Office Visit 05/03/2017 11:45a Alyce Schwarz, N.P. 48601 L02.91 Office Visit 09/08/2016 9:00a Alyce Schwarz, N.P. 93544 Z01.419 N91.2 Z11.59 R53.83 E66.9 Z11.3 Office Visit 02/13/2016 10:45a Alyce Schwarz, N.P. 36401 M25.571 Office Visit 12/10/2015 11:00a Alyce Schwarz, N.P. 98955 G43.001 Office Visit 09/11/2015 10:00a Alyce Schwarz, N.P. 75452 G43.001 N93.8 Office Visit 09/02/2015 11:00a Alyce Schwarz, N.P. 70849 G43.001 Office Visit 08/22/2015 11:00a Alyce Schwarz, N.P. 29951 G43.001 R11.2 Office Visit 08/13/2015 2:15p Alyce Schwarz, N.P. 01175 J01.00 R05 Office Visit 05/17/2015 11:30a Alyce Schwarz, N.P. 83417 J20.9 R05 Office Visit 01/16/2015 9:45a Alyce Schwarz, N.P. 66274 786.2 466.0 Office Visit 01/14/2015 1:00p Alyce Schwarz, N.P. 20817 V04.89 V70.0 V74.1 Office Visit 12/10/2014 10:00a Alyce Schwarz, N.P. 02434 848.41 Office Visit 12/03/2014 10:45a Alyce Schwarz, N.P. 03584 848.41 Office Visit 11/30/2014 10:45a Alyce Schwarz, N.P. 40306 848.41 Office Visit 10/18/2014 10:45a Alyce Schwarz, N.P. 30733 309.28 Office Visit 08/20/2014 10:30a Alyce Schwarz, N.P. 83621 466.0 786.2 Office Visit 08/13/2014 2:30p Alyce Schwarz, N.P. 12203 466.0 786.2 Office Visit 06/25/2014 11:30a Alyce Schwarz, N.P. 92675 466.0 780.79 786.2 Office Visit 01/03/2014 9:45a Alyce Schwarz, N.P. 08705 681.02 Office Visit 12/27/2013 9:30a Alyce Schwarz, N.P. 71852 784.0 Office Visit 12/12/2013 1:45p Alyce Schwarz, N.P. 48923 626.0 Office Visit 11/09/2013 3:15p Alyce Schwarz, N.P. 60228 309.0 Office Visit 10/31/2013 9:15a Alyce Schwarz, N.P. 62012 309.0 Office Visit 09/21/2013 10:15a Alyce Schwarz, N.P. 88225 789.9 Office Visit 09/12/2013 9:45a Alyce Schwarz, N.P. 30162 784.0 466.0 789.9 780.79 Office Visit 09/01/2013 9:00a Alyce Schwarz, N.P. 60825 790.6 789.9 Office Visit 01/10/2013 9:30a Alyce Schwarz, N.P. 73231 784.0 Office Visit 06/21/2012 10:45a Alyce Schwarz, N.P. 08622 466.0 786.2 Office Visit 05/09/2012 1:00p Alyce Schwarz, N.P. 29685 525.8 724.2 V74.1 Office Visit 04/01/2012 9:30a Alyce Schwarz, N.P. 79935 V70.9 V74.1 Office Visit 02/11/2012 2:15p Alyce Schwarz, N.P. 80053 709.9 Office Visit 12/15/2011 10:45a Alyce Schwarz, N.P. 28661 461.0 381.01 Office Visit 12/10/2011 1:45p Alyce Schwarz, N.P. 61979 784.91 784.1 Office Visit 10/26/2011 12:30p Alyce Schwarz, N.P. 13766 789.9 Office Visit 05/27/2011 1:15p Alyce Schwarz, N.P. 63035 466.0 786.05 305.1 Office Visit 05/11/2011 10:00a Alyce Schwarz, N.P. 40484 789.9 780.79 Office Visit 05/01/2011 8:30a Alyce Schwarz, N.P. 24741 466.0 Office Visit 04/28/2011 10:15a Alyce Schwarz, N.P. 10620 466.0 786.05 Office Visit 04/24/2011 9:15a Alyce Schwarz, N.P. 82032 466.0 Office Visit 12/03/2010 3:30p Alyce Schwarz, N.P. 24745 110.5 Office Visit 09/22/2010 3:30p Alyce Schwarz, N.P. 98823 726.19 Office Visit 08/11/2010 3:45p Alyce Schwarz, N.P. 20229 079.99 Office Visit 07/10/2010 3:30p Alyce Schwarz, N.P. 74043 709.9 784.0 Office Visit 07/02/2010 3:00p Alyce Schwarz, N.P. 86819 709.9 Office Visit 06/26/2010 3:30p Alyce Schwarz, N.P. 17153 784.1 Office Visit 05/22/2010 3:30p Alyce Schwarz, N.P. 54263 599.89 Office Visit 05/12/2010 3:15p Alyce Schwarz, N.P. 76871 380.10 Office Visit 04/29/2010 3:10[place] [address] V70.0 V04.81 599.89 V74.1 Office Visit 04/23/2010 3:30p Alyce Schwarz, N.P. 33440 724.2 Office Visit 04/10/2010 3:30p Alyce Schwarz, N.P. 71949 724.2 Office Visit 04/01/2010 3:10[place] [address] 590.81 256.4 847.1 Office Visit 03/18/2010 3:10[place] [address] 590.81 Office Visit 11/20/2009 3:30p Alyce Schwarz, N.P. 17144 462 Office Visit 09/18/2009 3:15p Alyce Schwarz, N.P. 12694 V72.31 616.10 788.41 V20.2 Office Visit 07/18/2009 2:30[place] [address] 009.0 Office Visit 06/21/2009 10:00a Alyce Schwarz, N.P. 67321 918.1 Office Visit 04/24/2009 2:45p Alyce Schwarz, N.P. 61176 924.9 Office Visit 04/30/2008 9:15a Alyce Schwarz, N.P. 24498 465.9 382.00 Office Visit 06/03/2007 10:00a Alyce Schwarz, N.P. 56653 511.0 Office Visit 05/03/2007 2:45p Alyce Schwarz, N.P. 99667 626.0 278.00 Office Visit 02/24/2007 8:30a Alyce Schwarz, N.P. 08557 616.10 V20.2 Office Visit 12/21/2006 3:30p Alyce Schwarz, N.P. 54754 616.10 V20.2 V03.89 Office Visit 12/10/2006 10:00a Alyce Schwarz, N.P. 11377 616.10 Office Visit 01/07/2006 3:30p Alyce Schwarz, N.P. 54321 784.0 705.83 Office Visit 12/24/2005 2:30p Alyce Schwarz, N.P. 68863 784.0 V20.2 Office Visit 06/29/2005 1:15p Alyce Schwarz, N.P. 72690 465.9 723.1 462 Office Visit 12/09/2004 2:45p Alyce Schwarz, N.P. 85218 704.8 Office Visit 11/27/2004 11:15a Alyce Schwarz N.P. 25224 704.8 Office Visit 09/25/2004 3:45p Alyce Schwarz, N.P. 78446 462 465.9 Office Visit 09/11/2004 10:30a Alyce Schwarz N.P. 55838 462 780.6 034.0 Office Visit 07/24/2004 2:45p Alyce Schwarz, N.P. 14916 462 780.6 784.0 Plan of Care Future Appointment(s):09/13/2017 10:00 am - Alyce Navarro, N.P. at [id number] - Alyce Navarro, N.PJennI10 Essential (primary) hypertensionComments:B/ P satble but still elevated at timeswill change lisinopril to lisinopril/ HCTZAllNew Medication:Lisinopril-Hydrochlorothiazide 10-12.5 mg
--- OUTSIDE RECORDS SUMMARY | 2017-09-11 09:36 | XMS REPORT ---
:1995 External Reference #:[id number] Author Organization [facility] Address [address] [place] [phone] Phone [phone] Care Team Providers Name Role Phone Alyce Navarro NSharif Care Team Information Rn Critical Care Unavailable Payers Type Date Identification Numbers Payment Provider Subscriber Health Maintenance Effective: Policy Number: [facility] [employer] ([facility] 08/09/2013 [id number] Group Number: [id number] [address] PayID: [id number] CHANTAL Mason [phone] Health Maintenance Effective: Policy Number: [facility] Enzo/FHP/CHP Effie Willams [facility] [place] ([facility] 03/09/2013 [id number] Expires: 11/06/2013 Group Number: [id number] [address] PayID: [id number] CHANTAL Mason [phone] Problems Date Description Provider Status Onset: 08/13/2014 Pleurisy Alyce Navarro, N.P. Active Onset: 08/22/2015 Asthma Alyce Navarro, N.P. Active Onset: 08/22/2015 Tobacco user Alyce Navarro, N.P. Active Onset: 09/02/2015 Migraine Alyce Navarro, N.P. Active Onset: 09/08/2016 Polycystic ovaries Alyce Navarro, N.P. Active Family History Date [...] Form Strength Qnty SIG Indications Ordering Provider Lisinopril 08/16 Active Tablets 10mg 30tabs 1 by [place] mouth Massuresh, every day N.P. Metformin HCL 06/22 Active Tablets 500mg 60tabs take one tablet by Alyce, mouth N.P. twice a day Topiramate Active Tablets 100mg 1 po bid Sulfamethoxazole 05/03 Hx Tablets 800-160mg 20tabs 1 by Ramon /Trimethoprim mouth Alyce, - twice a N.P. Metrogel-Vaginal 09/10 Hx Gel 0.75% 70gm one appl per Alyce, - vagina N.P. 06/07 night at bedtime x 5d Work Note 09/08 Hx no [facility], - (09/08/16) N.P. 06/07 medical reasons may return to unrestric [employer] work tomorrow (09/09/16) Nuvaring 09/08 Hx Ring 0.12-0.01 1units insert 1 5mg/24HR ring Alyce, - vaginally N.P. 06/07 every weeks as directed Work Note 02/12 Hx MAy return to [employer], - unrestric N.P. 09/08 alberto work /2016 on 02/17/16 Topamax 08/22 Hx Tablets 25mg 60tabs 1 by mouth Massuresh, - twice a N.P. Avelox 08/13 Hx Tablets 400mg 10tabs 1 by mouth Massalazarle, - every day N.P. 08/22 x 10 Tessalon 08/13 Hx Capsules 200mg 30caps 1 by mouth Alyce, - three N.P. 08/22 times a day prn cough Augmentin 05/17 Hx Tablets 875-125mg 20tabs 1 po bid x 10 days Mashelle, - N.P. 08/13 Zithromax Z-Carrillo 01/16 Hx Tablets 250mg 1Pak as directed Massalazarle, - N.P. 05/17 Robitussin DM 01/16 Hx Syrup 100-10mg/ 237ml 1-2 5ML teaspoons Alyce, - q 4-6h N.P. 08/13 prn cough Physical Therapy 12/03 Hx eval and treat r Alyce, - shoulder N.P. 08/13 pain Work Note 12/03 Hx no work 12/03/14-5 Massuresh, - /11/21 N.P. 12/10 Ibuprofen 12/03 Hx Tablets 600mg 24tabs 1 by mouth Mashellana, - four N.P. 06/07 times a day with food Cyclobenzaprine 11/30 Hx Tablets 10mg 15tabs take one tablet by Massuresh, - mouth N.P. 12/03 times a day Indomethacin 11/30 Hx Capsules 50mg 30caps 1 by mouth Mashelle, - three N.P. 11/30 times day with food Prednisone 11/30 Hx Tablets 10mg 30tabs 4 by mouth x 3 Mashelle, - days, N.P. 11/30 then 3 mouth x 3 days then 2 by [...] Ring 0.12-0.01 3units insert 5mg/24HR one ring Alyce, - vaginally N.P. 07 every three weeks Advair Diskus 08/13 Hx Aerosol 250-50mcg sample 1 inhale /Dose twice a Massalazarle, - day N.P. 06/07 Proair HFA 08/13 Hx Aerosol 108(90Bas 1units 2 puffs e) four Mashelle, - mcg/Act times a N.P. 06/07 day needed Avelox 08/13 Hx Tablets 400mg 1 by mouth Massuresh, - every day N.P. 08/20 x 10 days Zithromax Z-Carrillo 06/25 Hx Tablets 250mg 1tabs as directed Alyce, - N.P. 08/13 Mupirocin 01/03 Hx Ointment 2% 22gm apply to affcted Alyce, - area bid N.P. 06/25 Augmentin 01/03 Hx Tablets 875-125mg 20tabs 1 po bid x 10 days Alyce, - N.P. 06/25 Zofran Odt 12/27 Hx Tablets 4mg 12tabs 1-2 tabs Dispers tid prn Alyce, - nausea N.P. 06/25 Indomethacin 12/27 Hx Capsules 50mg 15caps 1 po tid with food Alyce, - N.P. 06/25 Escitalopram 10/31 Hx Tablets 20mg 30tabs 1 po q hs Mashelle, - N.P. 06/25 Magnesium Oxide 09/12 Hx Tablets 400mg 30tabs 1 po qd Renele, - N.P. 06/25 Rosignol Cream 09/01 Hx Massalazarle, - N.P. 09/01 Mupirocin 06/01 Hx Ointment 2% 22gm apply to affcted Alyce, - area bid N.P. 09/12 Work Note 08/08 Hx no work 08/06/12- Mashelle, - 08/11/12 N.P. 01/10 for medical reasons Tessalon 06/21 Hx Capsules 200mg 21caps 1 po tid prn Mashelle, - N.P. 01/10 Dextromethorphan 06/21 Hx Solution 20-200mg/ 200ml 2 , /Guaifen 10ML teaspoons Mashelle, - q 4-6h N.P. 01/10 prn cough School Note 06/21 Hx No school , 06/21/12- Mashelle, - 06/22/12 N.P. 01/10 for medical reasons Ibuprofen 05/09 Hx Tablets 800mg 40tabs 1 po qid [place], with food Mashelle, - N.P. 01/10 Fluocinonide 02/10 Hx Cream 0.05% 30gm apply sparingly Mashelle, - three N.P. /04 times a day Augmentin 12/14 Hx Tablets 500-125mg 20tabs 1 po q 12 hours x Mashelle, - 10 days N.P. 02/10 Fexofenadine HCL 12/10 Hx Tablets 180mg 30tabs 1 po qd Mashelle, - N.P. 09/12 Xyzal 12/09 Hx Tablets 5mg 30tabs 1 po qd Mashelle, - N.P. 12/10 Ibuprofen 12/09 Hx Tablets 600mg 24tabs 1 po qid Forks, with food Mashelle, - N.P. 05/09 Zithromax Z-Carrillo 05/27 Hx Tablets 250mg 1tabs as directed Mashelle, - N.P. 12/09 Prednisone 05/01 Hx Tablets 50mg 3tabs 1 po qd x [place]ks 3 days Mashelle, - N.P. 05/27 Proventil HFA 04/28 Hx Aerosol 108(90Bas 1units 2 puffs e) mcg/ac qid Renele, - N.P. 09/12 Advair Diskus 04/28 Hx Aerosol 250-50mcg 1disc 1 inhale /Dose bid Renele, - N.P. 09/12 Zithromax Z-Carrillo 04/24 Hx Tablets 250mg 1tabs as directed Renele, - N.P. 05/01 Tylenol W 04/24 Hx 480ml 1-2 Forks, Codeine 12MG/5cc teaspoons Alyce, - q 6 hours N.P. 04/28 prn Work Note 04/24 Hx no work Forks04/25/11-9 Alyce, - N.P. 0503 for medical reasons [...] 200mg/5ML 32ml 2 08/10 Rec tsp day Alyce, - one, then N.P. 07/02 1 08/12 tsp. qd x 4 days Physical Therapy 06/05 Hx eval and Ramon treat Alyce, - back pain N.P. 12/09 dx: pain Floxin Otic 05/12 Hx Solution 0.3% 10ml 10 gtts r [place]ks ear qd x Renele, - 5 days N.P. 12/09 Macrodantin 05/07 Hx Capsules 100mg 28caps 1 po qid Ramon X 7 Days Alyce, - N.P. 05/12 School Note 04/24 Hx patient may have Alyce, - ibuprofen N.P. 04/29 400mg /2009 every 6 hours prn while in school Physical Therapy 04/10 Hx eval and treat Alyce, - back pain N.P. 04/29 dx: pain Soma 04/10 Hx Tablets 350mg 40tabs 1 po qid Ramon Alyce, - N.P. 04/29 Skelaxin 04/10 Hx Tablets 800mg 20tabs 1 po qid Ramon prn Alyce - N.P. 04/29 Metformin HCL 03/18 Hx Tablets 500mg 90tabs tid c Forks meals Alyce - N.P. 12/09 Hydrocodone/Acet 03/18 Hx Tablets 7.5-500mg 12tabs 1po qid Kaitlynn aminophen prn Tyson Eubanks MD 04/01 Restrictions 03/18 Hx kidney Kaitlynn infection Tyson Eubanks MD 04/01 restrict on walking only for 2 weeks Bactrim DS 09/23 Hx Tablets 800-160mg 14tabs 1 po bid Kaitlynn X 7 Day Tyson Eubanks MD 04/01 Excuse 07/18 Hx excuse 009.0 Kaitlynn school Kyler Rossi, - 12/,8,9, 09/18 10 bug Ocuflox 06/21 Hx Solution 0.3% 5ml 1 qtt to affected Alyce, - eye(s) q N.P. 07/18 4 hours /2008 for 2 days then qid x 5 days Celebrex 04/24 Hx Capsules 200mg samples 1 po qd Massuresh, - N.P. 07/18 Tylenol/Codeine 04/24 Hx Tablets 300-30mg 24tabs 1 -2 po q Forks, 4-6 hours Alyce, - prn pain N.P. 07/18 Augmentin 04/30 Hx Tablets 500mg 10tabs 1 po q Ramon 12hrs x 5 Mashelle, - days N.P. 05/05 School Note 06/03 Hx no gym or Ramon sports Mashelle, - 06/03/07- N.P. 07/1806/10/07 for medical reasons Diflucan 12/21 Hx Tablets 150mg 1tabs One Tab Forks, PO Times Mashelle, - One Day N.P. 07/18 Diflucan 12/13 Hx Tablets 150mg 1tabs One Tab [place]ks, PO Times Mashelle, - One Day N.P. 12/14 Singulair 01/07 Hx Tablets 10mg 60tabs 1 po q pm [place] Mashelle, - N.P. 07/18 CT Request 12/[address] head Forks, Mashelle, - N.P. 07/18 Dx: new onset headaches Amoxil 06/29 Hx Capsules 500mg 20caps 1 po q 12 hrs x 10 Mashelle, - days N.P. 12/24 Minocin 12/09 Hx Capsules 100mg 180caps 1 po q 12h Mashelle, - N.P. 07/18 Bactroban 11/27 Hx Ointment 2% 22gm apply bid as Mashelle, - directed N.P. 12/24 Topamax Hx Tablets 50mg 1 po bid Unknown /0000 - 09/08 Medications Administered in Office Medication Date Status Form Strength Qnty SIG Indications Ordering Provider PPD Administered Injection Nurses 7 Schedule Savannah PPD Administered Injection Forks, 5 Mashelle, N.P. PPD Administered Injection Nurses 2 Schedule [place]annah PPD Administered Injection Forks, 2 Mashelle, N.P. PPD Administered Injection Forks, 2 Mashelle, N.P. PPD Administered Injection Eppolito, 0 Kyler Rossi MD Immunizations CPT Code Status Date Vaccine Reaction Lot # [id number] Given 06/22/2017 Influenza Vac, 3 Yrs & Older, [id number] Quadrivalent, Split, Im Use 83171 Given 05/01/2010 Tdap (Adacel) Ages 7 And Above Only [id number] 71100 Given 04/29/2010 Afluria Or Fluvirin Flu Vac * [id number] Intramuscular 34865 Given 09/28/2007 HPV Vaccine (Gardasil) 3 Dose Schedule 49013 Given 09/28/2007 HPV Vaccine (Gardasil) 3 Dose Schedule [id number] 97942 Given 02/24/2007 HPV Vaccine (Gardasil) 3 Dose Schedule 28332 Given 12/21/2006 Meningococcal Immunization [id number] 27585 Given 12/21/2006 HPV Vaccine (Gardasil) 3 Dose Schedule 0244U 86101 Given 01/11/1999 IPV / Poliomyelitis Immunization 59971 Given 01/11/1999 MMR Virus Immunization 55910 Given 01/11/1999 DTaP Immunization 7 Yrs & Younger [id number] 59080 Given 09/03/1995 Varicella (Chicken Pox) Immunization 66775 Given 03/18/1995 Hib HbOC Conjugate 4 Dose Schedule 10686 Given 12/24/1994 DTaP Immunization 7 Yrs & Younger [id number] 20987 Given 09/11/1994 MMR Virus Immunization 99623 Given 07/04/1994 Hepatitis B Vac Ped/Adolescent 3 Dose Schedule 65199 Given 03/09/1994 IPV / Poliomyelitis Immunization 50344 Given 03/09/1994 DTaP Immunization 7 Yrs & Younger [id number] 62213 Given 01/07/1994 IPV / Poliomyelitis Immunization 52216 Given 01/07/1994 DTaP Immunization 7 Yrs & Younger [id number] 99644 Given 01/07/1994 Hib HbOC Conjugate 4 Dose Schedule 43842 Given 1993 Hepatitis B Vac Ped/Adolescent 3 Dose Schedule 25825 Given 1993 IPV / Poliomyelitis Immunization 73133 Given 1993 DTaP Immunization 7 Yrs & Younger [id number] 90524 Given 1993 Hib HbOC Conjugate 4 Dose Schedule 20831 Given 1993 Hepatitis B Vac Ped/Adolescent 3 [...] SENSITIVE 21 Cefazolin (CZ) SENSITIVE 21 Ceftriaxone (Director Of Retail Operations SENSITIVE 21 Ciprofloxacin (Cip) SENSITIVE 21 Nitrofurantoin [...] 04/29/2010 Rubella Antibody, Igg -LA 45.7 IU/mL 21, 25 Rubeola (Measles) Antibody Igg-LA 0.97 ELFA 21, 26 Rubella Antibody Igm -RL 04/29/2010 Rubella [...] Ampicillin/Sulbactam (Sridhar) SENSITIVE Cefazolin (CZ) SENSITIVE Ceftriaxone (Director Of Retail Operations SENSITIVE Ciprofloxacin (Cip) SENSITIVE Nitrofurantoin (FT) SENSITIVE [...] Unless otherwise specified, testing performed by [facility] [employer] [address] [place] [address] 8 This sample is drawn by:JONH/AUGUSTIN 9 [...] 130-159 High: 160-189 Very high: >189 13 Xecced. [facility] [place] [address] CYTOLOGY REPORT Source of Specimen(s): SurePath Vaginal [...] Z01.419 Unless otherwise specified, testing performed by [facility] [place] [address] 14 INTERPRETATION: LESS THAN 6 NEGATIVE 6 - 10 BORDERLINE (SUGGEST REPEAT IN 48 HOURS) APPROX HCG RANGE WEEKS POST LMP 11 - 130 3 - 4 WEEKS 75 - 2600 4 - 5 WEEKS 850 - 00694 5 - 6 WEEKS 4000 - 720603 6 - 7 WEEKS 35842 - 278427 7 - 12 WEEKS 02887 - 230304 12 - 16 WEEKS 1400 - 30498 16 - 29 WEEKS 940 - 84000 29 - 41 WEEKS Unless otherwise specified, testing performed by [facility] [place] [address] 15 INTERPRETATION: LESS THAN 6 NEGATIVE 6 - 10 BORDERLINE (SUGGEST REPEAT IN 48 HOURS) APPROX HCG RANGE WEEKS POST LMP 11 - 130 3 - 4 WEEKS 75 - 2600 4 - 5 WEEKS 850 - 68401 5 - 6 WEEKS 4000 - 176235 6 - 7 WEEKS 05826 - 284358 7 - 12 WEEKS 11797 - 940615 12 - 16 WEEKS 1400 - 29701 16 - 29 WEEKS 940 - 91168 29 - 41 WEEKS Unless otherwise specified, testing performed by [facility] [place] [address] 16 Unless otherwise specified, testing performed by [facility] [address] [place] [address] 17 SPECIMEN DESCRIPTION ABSCESS SPECIAL REQUESTS NONE GRAM STAIN NO WHITE BLOOD CELLS NO EPITHELIAL CELLS NO BACTERIA CULTURE RESULTS RARE MIXED GRAM POSITIVE ERNESTO REPORT STATUS FINAL 06/03/2013 Unless otherwise specified, testing performed by [facility] [address] [place] [address] 18 [place] [address] Surgical Pathology Report Specimen(s) Received A: Right [...] Multiple levels examined. Technical component processed at [facility], Histopathology, [address] [place] [address], [address]. Diagnosis and reporting performed at [place] [address]. Reported: 05/25/2012 11:39 Electronically Signed Out By Vimal Almanzar MD paw ICD9 Codes 216.5 Unless otherwise specified, testing performed by [facility] [address] [place] [address] 19 Ordered in Duplicate 20 INTERPRETATION: LESS THAN 6 NEGATIVE 6 - 10 BORDERLINE (SUGGEST REPEAT IN 48 HOURS) APPROX HCG RANGE WEEKS POST LMP 11 - 130 3 - 4 WEEKS 75 - 2600 4 - 5 WEEKS 850 - 36613 5 - 6 WEEKS 4000 - 010761 6 - 7 WEEKS 66821 - 293454 7 - 12 WEEKS 81539 - 446924 12 - 16 WEEKS 1400 - 15608 16 - 29 WEEKS 940 - 01098 29 - 41 WEEKS Unless otherwise specified, testing performed by [facility] [place] [address] 21 This sample is drawn by:AUGUSTIN FOSTER 22 >100,000 CFU/ML ESCHERICHIA COLI 23 GRAM [...] TITER. Unless otherwise specified, testing performed by [facility] [place] [address] 26 MEASLES INTERPRETATION: NEGATIVE <0.50 ELFA UNITS BORDERLINE 0.50 - 0.69 ELFA UNITS LOW LEVEL 0.70 - 1.90 ELFA UNITS MED. LEVEL 1.91 - 2.70 ELFA UNITS HIGH LEVEL >2.70 ELFA UNITS VALUES OF 0.70 OR GREATER INDICATE IMMUNIZATION OR PAST INFECTION. BORDERLINE RESULTS ARE CONFIRMED IN DUPLICATE. Unless otherwise specified, testing [place] [address] 27 REFERENCE INTERVAL: Rubella Ab, IgM 0.89 [...] 12 months post-infection or immunization. Performed by [facility], [address] [place] [address] [email or web address], Liliana Garcia MD, Lab. Director Unless otherwise specified, testing performed by [facility] [address] [address] [address] [facility]. [address] [place] [address] GYNECOLOGIC CYTOLOGY REPORT Accession Number: [id number] Source of Specimen(s): A: SurePath Vaginal / [...] 09/23/2009 Electronically Signed Out By Jaimie CARR(ASCP) [facility] lxd ICD9 Code: V72.31 616.10 Unless otherwise specified, testing performed by [email or web address] [address] [address] 29 >100,000 CFU/ML ESCHERICHIA COLI 30 SPECIMEN DESCRIPTION GENITAL RESULT NEGATIVE FOR TRICHOMONAS VAGINALIS NEGATIVE FOR GARDNERELLA VAGINALIS NEGATIVE FOR ARCELIA SPECIES REPORT STATUS FINAL 09/19/2009 Unless otherwise specified, testing performed by [email or web address] [address] [address] 31 GRAM NEGATIVE BEN ISOLATED, ID & SENSITIVITY TO FOLLOW 32 Reference range: 0.9 to 6.8 Unit: pg/mL The performance characteristics of this test were validated by [facility] The U.S. Food and Drug Administration (FDA) has not approved this test. The results are not intended to be used as the sole means for clinical diagnosis or patient management decisions. [facility] is authorized under Clinical Laboratory Improvement Amendments (CLIA) and by all states to perform high-complexity testing. Performed by [facility], [address] [place] [address] [email or web address], Stanley Sargent MD - Lab. Director 33 Lutenizing Hormone Female Normals: Mid-Follicular: 2.1-10.9 mIU/ml Mid-cycle Peak: 19.2-103.0 mIU/ml Mid-Luteal: 1.2-12.9 mIU/ml Postmenopausal: 10.9-58.6 mIU/ml 34 FSH Female Normal Values: Mid-Follicular: 3.9-8.8 mIU/ml Mid-cycle Peak: 4.5-22.5 mIU/ml Mid-Luteal: 1.8-5.1 mIU/ml Post menopausal: 16.7-113.6 mIU/ml 35 Prolactin Female Normal Values: Pre-menopausal: 3.3-26.7 ng/ml Post-menopausal: 2.7-19.6 ng/ml Procedures Date CPT Code Description Status 06/22/2017 27028 Admin Of Inj (Therapeutic Phrophylactic Or Diagnostic Completed Subq Inj 08/13/2015 25103 Measure Blood Oxygen Level Single Determination Completed 05/17/2015 90408 Measure Blood Oxygen Level Single Determination Completed 01/16/2015 20748 Measure Blood Oxygen Level Single Determination Completed 08/20/2014 09979 Measure Blood Oxygen Level Single Determination Completed 08/13/2014 04466 Measure Blood Oxygen Level Single Determination Completed 06/25/2014 15295 Measure Blood Oxygen Level Single Determination Completed 06/01/2013 28829 I & D Abscess Simple Completed 06/21/2012 22286 Measure Blood Oxygen Level Single Determination Completed 05/20/2012 30123 Excise Benign Lesion <.6CM Trunk/Arm/Leg Completed 05/27/2011 86418 Measure Blood Oxygen Level Single Determination Completed 05/01/2011 28607 Measure Blood Oxygen Level Single Determination Completed 04/28/2011 34287 Measure Blood Oxygen Level Single Determination Completed 04/24/2011 31120 Measure Blood Oxygen Level Single Determination Completed 05/01/2010 48612 Admin Of Inj (Therapeutic Phrophylactic Or Diagnostic Completed Subq Inj 04/29/2010 64372 Admin Of Inj (Therapeutic Phrophylactic Or Diagnostic Completed Subq Inj Encounters Type Date Location Provider CPT E/M Dx Office Visit 08/16/2017 8:45a Alyce Schwarz, N.P. 71344 E66.9 I10 Office Visit 07/06/2017 8:30a Alyce Schwarz, N.P. 28903 G43.109 Office Visit 06/22/2017 8:30a Alyce Schwarz N.P. 10879 E28.2 E66.9 Z23 Office Visit 06/07/2017 9:45a Alyce Schwarz, N.P. 53088 F39 R53.83 E66.9 Office Visit 05/03/2017 11:45a Alyce Schwarz, N.P. 99758 L02.91 Office Visit 09/08/2016 9:00a Alyce Schwarz, N.P. 67653 Z01.419 N91.2 Z11.59 R53.83 E66.9 Z11.3 Office Visit 02/13/2016 10:45a Alyce Schwarz, N.P. 64062 M25.571 Office Visit 12/10/2015 11:00a Alyce Schwarz, N.P. 05529 G43.001 Office Visit 09/11/2015 10:00a Alyce Schwarz, N.P. 95332 G43.001 N93.8 Office Visit 09/02/2015 11:00a Alyce Schwarz, N.P. 12987 G43.001 Office Visit 08/22/2015 11:00a Alyce Schwarz, N.P. 11100 G43.001 R11.2 Office Visit 08/13/2015 2:15p Alyce Schwarz, N.P. 18681 J01.00 R05 Office Visit 05/17/2015 11:30a Alyce Schwarz, N.P. 47936 J20.9 R05 Office Visit 01/16/2015 9:45a Alyce Schwarz, N.P. 70282 786.2 466.0 Office Visit 01/14/2015 1:00p Alyce Schwarz, N.P. 88010 V04.89 V70.0 V74.1 Office Visit 12/10/2014 10:00a Alyce Schwarz, N.P. 13460 848.41 Office Visit 12/03/2014 10:45a Alyce Schwarz, N.P. 66037 848.41 Office Visit 11/30/2014 10:45a Alyce Schwarz, N.P. 78520 848.41 Office Visit 10/18/2014 10:45a Alyce Schwarz, N.P. 67063 309.28 Office Visit 08/20/2014 10:30a Alyce Schwarz, N.P. 41738 466.0 786.2 Office Visit 08/13/2014 2:30p Alyce Schwarz, N.P. 56617 466.0 786.2 Office Visit 06/25/2014 11:30a Alyce Schwarz, N.P. 07312 466.0 780.79 786.2 Office Visit 01/03/2014 9:45a Alyce Schwarz, N.P. 07476 681.02 Office Visit 12/27/2013 9:30a Alyce Schwarz, N.P. 13310 784.0 Office Visit 12/12/2013 1:45p Alyce Schwarz, N.P. 78636 626.0 Office Visit 11/09/2013 3:15p Alyce Schwarz, N.P. 65955 309.0 Office Visit 10/31/2013 9:15a Alyce Schwarz, N.P. 27322 309.0 Office Visit 09/21/2013 10:15a Alyce Shcwarz, N.P. 74776 789.9 Office Visit 09/12/2013 9:45a Alyce Schwarz, N.P. 71338 784.0 466.0 789.9 780.79 Office Visit 09/01/2013 9:00a Alyce Schwarz, N.P. 08780 790.6 789.9 Office Visit 01/10/2013 9:30a Alyce Schwarz, N.P. 17093 784.0 Office Visit 06/21/2012 10:45a Alyce Schwarz, N.P. 77022 466.0 786.2 Office Visit 05/09/2012 1:00p Alyce Schwarz, N.P. 54751 525.8 724.2 V74.1 Office Visit 04/01/2012 9:30a Alyce Schwarz, N.P. 01018 V70.9 V74.1 Office Visit 02/11/2012 2:15p Alyce Schwarz, N.P. 98068 709.9 Office Visit 12/15/2011 10:45a Alyce Schwarz, N.P. 07914 461.0 381.01 Office Visit 12/10/2011 1:45p Alyce Schwarz, N.P. 18015 784.91 784.1 Office Visit 10/26/2011 12:30p Alyce Schwarz, N.P. 56428 789.9 Office Visit 05/27/2011 1:15p Alyce Schwarz, N.P. 90223 466.0 786.05 305.1 Office Visit 05/11/2011 10:00a Alyce Schwarz, N.P. 85165 789.9 780.79 Office Visit 05/01/2011 8:30a Alyce Schwarz, N.P. 42789 466.0 Office Visit 04/28/2011 10:15a Alyce Schwarz, N.P. 80437 466.0 786.05 Office Visit 04/24/2011 9:15a Alyce Schwarz, N.P. 40188 466.0 Office Visit 12/03/2010 3:30p Alyce Schwarz, N.P. 15184 110.5 Office Visit 09/22/2010 3:30p Alyce Schwarz, N.P. 58001 726.19 Office Visit 08/11/2010 3:45p Alyce Schwarz, N.P. 53151 079.99 Office Visit 07/10/2010 3:30p Alyce Schwarz, N.P. 34819 709.9 784.0 Office Visit 07/02/2010 3:00p Alyce Schwarz, N.P. 54382 709.9 Office Visit 06/26/2010 3:30p Alyce Schwarz, N.P. 01086 784.1 Office Visit 05/22/2010 3:30p Alyce Schwarz, N.P. 95511 599.89 Office Visit 05/12/2010 3:15p Alyce Schwarz, N.P. 39761 380.10 Office Visit 04/29/2010 3:10[place] [address] V70.0 V04.81 599.89 V74.1 Office Visit 04/23/2010 3:30p Alyce Schwarz, N.P. 18555 724.2 Office Visit 04/10/2010 3:30p Alyce Schwarz, N.P. 88771 724.2 Office Visit 04/01/2010 3:10p [place] [address] 590.81 256.4 847.1 Office Visit 03/18/2010 3:10p [place] [address] 590.81 Office Visit 11/20/2009 3:30p Alyce Schwarz, N.P. 93276 462 Office Visit 09/18/2009 3:15p Alyce Schwarz, N.P. 88952 V72.31 616.10 788.41 V20.2 Office Visit 07/18/2009 2:30[place] [address] 009.0 Office Visit 06/21/2009 10:00a Alyce Schwarz, N.P. 38691 918.1 Office Visit 04/24/2009 2:45p Alyce Schwarz, N.P. 24159 924.9 Office Visit 04/30/2008 9:15a Alyce Schwarz, N.P. 84373 465.9 382.00 Office Visit 06/03/2007 10:00a Alyce Schwarz, N.P. 03208 511.0 Office Visit 05/03/2007 2:45p Alyce Schwarz, N.P. 81160 626.0 278.00 Office Visit 02/24/2007 8:30a Alyce Schwarz, N.P. 42399 616.10 V20.2 Office Visit 12/21/2006 3:30p Alyce Schwarz, N.P. 51435 616.10 V20.2 V03.89 Office Visit 12/10/2006 10:00a Alyce Schwarz, N.P. 63623 616.10 Office Visit 01/07/2006 3:30p Alyce Schwarz, N.P. 47040 784.0 705.83 Office Visit 12/24/2005 2:30p Alyce Schwarz, N.P. 82274 784.0 V20.2 Office Visit 06/29/2005 1:15p Alyce Schwarz, N.P. 52580 465.9 723.1 462 Office Visit 12/09/2004 2:45p Alyce Schwarz, N.P. 87476 704.8 Office Visit 11/27/2004 11:15a Alyce Schwarz, N.P. 43742 704.8 Office Visit 09/25/2004 3:45p Alyce Schwarz, N.P. 61340 462 465.9 Office Visit 09/11/2004 10:30a Alyce Schwarz, N.P. 21492 462 780.6 034.0 Office Visit 07/24/2004 2:45p Alyce Schwarz, N.P. 61797 462 780.6 784.0 Plan of Care 08/16/2017 - Alyce Navarro, N.P.E66.9 Obesity, unspecifiedComments:health risks of obesity discussed with pt. instructed to decrease caloric intake, aerobic exercise, start slow as discussed f/u lipid results discussed pos effect of exercise on [id number] Essential (primary) hypertensionComments:take lisinopril 10mg as directed pt inst to monitor B/P at home/work 2-3 times per week and report abngoal: <140/90 recheck 2 weeksAllNew Medication: Lisinopril 10 mg
--- OUTSIDE RECORDS SUMMARY | 2017-09-11 09:37 | XMS REPORT ---
:1995 External Reference #:[id number] Author Organization [facility], Address [address] [place] [address] Phone [phone] Care Team Providers Name Role Phone Alyce Navarro NP Primary Care Physician Unavailable Payers Type Date Identification Numbers Payment Provider Subscriber Commercial Policy Number: [id number] [employer] Of AURELIO Willams PayID: [id number] [address] [address] [place] [address] Commercial Expires: 2017 Policy Number: [employer]/BS Of Akhil Willams [id number] [employer] Group Number: [id number] [address] [address] PayID: [id number] [place] [address] Commercial Expires: 2017 Policy Number: [id number] [employer]egisselleronel Willams Group Number: [id number] [address] Group Name: HERNAN Marshall [id number] PayID: [id number] Problems Date Description Provider Status 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 Family History Date Family Member(s) Problem(s) Comments General non contributory Social History Type Date Description Comments Occupation Currently Working Hand Dominance Right-handed Cigarette Use Heavy tobacco smoker (more than 10 cigarettes/day) ETOH Use Occasionally consumes alcohol Smoking Patient was a smoker, current status is unknown Allergies, Adverse Reactions, Alerts Date Description Reaction Status Severity Comments 12/02/2015 Tramadol active 12/02/2015 Toradol active 12/02/2015 Codeine active 12/02/2015 Oxycodone active 06/20/2017 Cefzil Hives active 12/16/2001 Cefzil active Medications Medication Date Status Form Strength Qnty SIG Indications Ordering Provider Topamax / Active Tablets 25mg 1 tab po Unknown 0000 qd Metformin HCL / Active Tablets 500mg 1 by mouth Unknown 0000 twice a day Naproxen / Active Tablets 500mg take one Unknown 0000 tablet by mouth twice a day with food as needed. do not take for greater than 7 days routinely. Amitriptyline 12/25/ Hx Tablets 10mg 90tabs 1 tab po G43.009 Adham HCL 2015 - before bed Kamel, 08/11/ M.D. 2017 Topamax 12/01/ Hx Tablets 25mg 70tabs 1 tab qam Adham 2015 - and 2 tab Kamel, 08/11/ qhs M.D. 2017 x1week, then 2 tab qam and 2 tabs qhs x1week, continue up to 75mg bid Maxalt-NANNY BABYSITTER 12/01/ Hx Tablets 10mg 12tabs Use upon Adham 2015 - Dispers onset of Kamel, 08/11/ migraine M.D. 2017 Metformin HCL / Hx Tablets 500mg bid Unknown 0000 - 2009 Medications Administered in Office Medication Date Status Form Strength Qnty SIG Indications Ordering Provider Betamethasone 08/11/ Administered Injection Hansel Acetate & Everette Pascual JR Betamethasone M.D. Sodium Phosphate, Per 6 MG Immunizations CPT Code Status Date Vaccine Lot # [id number] Given 01/11/1999 Poliovirus Vaccine Oral 42133 Given 01/11/1999 MMR Vaccine, Live, For Subcutaneous Use 29281 Given 01/11/1999 DTP Vaccine 92438 Given 01/11/1999 DTaP Vaccine Younger Than 7 (daptacel/Infarix) 48969 Given 09/03/1995 Varicella (Chicken Pox) Vaccine 29534 Given 03/18/1995 Hib Hboc Conjugate 4 Dose Schedule 84493 Given 12/24/1994 DTP Vaccine 39122 Given 09/11/1994 MMR Vaccine, Live, For Subcutaneous Use 46760 Given 07/07/1994 Hepatitis B Vaccine Pediatric/Adolescent 51260 Given 03/09/1994 DTP Vaccine 86771 Given 03/09/1994 DTP Vaccine 21983 Given 03/09/1994 Poliovirus Vaccine Oral 02246 Given 01/07/1994 Poliovirus Vaccine Oral 80204 Given 01/07/1994 DTP Vaccine 20676 Given 01/07/1994 Hib Hboc Conjugate 4 Dose Schedule 10590 Given 1993 Hepatitis B Vaccine Pediatric/Adolescent 25366 Given 1993 Poliovirus Vaccine Oral 06636 Given 1993 DTP Vaccine 70682 Given 1993 Hib Hboc Conjugate 4 Dose Schedule 40795 Given 1993 Hepatitis B Vaccine Pediatric/Adolescent Vital Signs Date Vital Result Comment 08/11/2017 Weight 235.00 lb Weight in kg's 106.596 BMI (Body Mass Index) 36.8 kg/m2 Respiratory Rate 15 /min Height 67 inches 5'7" Height in cm's 170.2 cm 12/26/2015 Weight 236.00 lb Weight in kg's 107.050 BMI (Body Mass Index) 37.0 kg/m2 BP Systolic 118 mmHg BP Diastolic 74 mmHg Height 67 inches 5'7" Height in cm's 170.2 cm 12/02/2015 Weight 236.00 lb Weight in kg's 107.050 BMI (Body Mass Index) 37.0 kg/m2 Height 67 inches 5'7" Height in cm's 170.2 cm 03/26/2004 Weight 149.00 lb Weight in kg's 67.585 Body Temperature 100.4 F 10/17/2003 Weight 142.00 lb Weight in kg's 64.410 Body Temperature 98.7 F 07/13/2003 Weight 134.00 lb Weight in kg's 60.781 BP Systolic 108 mmHg BP Diastolic 70 mmHg Heart Rate 76 /min 09/14/2002 Weight 115.00 lb Weight in kg's 52.163 Body Temperature 98.1 F 09/11/2002 Weight 115.94 lb Weight in kg's 52.590 Body Temperature 99.7 F 06/07/2002 Weight 113.94 lb Weight in kg's 51.682 Body Temperature 97.3 F 03/09/2002 Weight 107.00 lb Weight in kg's 48.534 BMI (Body Mass Index) 25.8 kg/m2 BP Systolic 90 mmHg BP Diastolic 62 mmHg Heart Rate 100 /min Height 54.25 inches Height in cm's 137.8 cm Height Percentile 95 % 12/16/2001 Weight 105.00 lb Weight in kg's 47.627 06/30/2000 Weight 80.50 lb Weight in kg's 36.514 Body Temperature 98.2 F 06/08/2000 Weight 79.12 lb Weight in kg's 35.888 BP Systolic 98 mmHg BP Diastolic 66 mmHg Body Temperature 98.2 F 05/06/1999 Weight 51.50 lb Weight in kg's 23.360 Body Temperature 99.2 F 01/11/1999 Weight 47.56 lb Weight in kg's 21.573 BP Systolic 80 mmHg BP Diastolic 52 mmHg Heart Rate 82 /min Body Temperature 99.1 F Height 45 inches Height in cm's 114.3 cm 08/06/1998 Weight 46.50 lb Weight in kg's 21.092 Body Temperature 104.0 F Height 43 inches Height in cm's 109.2 cm 06/25/1998 Weight 47.00 lb Weight in kg's 21.319 Body Temperature 97.7 F Height 43 inches Height in cm's 109.2 cm 06/07/1998 Weight 44.31 lb Weight in kg's 20.099 Body Temperature 97.8 F 01/10/1998 Weight 39.38 lb Weight in kg's 17.862 Body Temperature 99.2 F 12/27/1997 Weight 39.38 lb Weight in kg's 17.862 Body Temperature 98.8 F 12/10/1997 Weight 37.50 lb Weight in kg's 17.010 Body Temperature 99.5 F 11/09/1997 Weight 37.50 lb Weight in kg's 17.010 BP Systolic 72 mmHg BP Diastolic 40 mmHg Body Temperature 98.8 F Height 42.25 inches Height in cm's 107.3 cm 10/08/1997 Weight 38.50 lb Weight in kg's 17.463 Body Temperature 104.3 F 09/04/1997 Weight 36.50 lb Weight in kg's 16.556 Body Temperature 101.0 F Results Test Date Test Result H/L Range Note Antibody Screen 04/07/2013 49422 Negative Specimen Expiration Date Blood Type (Group & RH) 04/07/2013 65895 A Rh Negative Specimen Expiration Date Rhogam Prep 04/07/2013 35637 Positive Specimen Expiration Date Volume 300 Status Information Issued Quantity 1 Product Identification Rh Immune Globul <SEE NOTE> 1 Lot Number [id number] Issue Date/Time [id number] Zhdzgskza-Jmqnuuue-Ixdss 04/07/2013 RBC 5 Maternal RBC 995 HGB 0.5 % <=2.0 Fet/Mat Ratio 0.0050 Ratio Chart /Maternal <SEE NOTE> 2 HGB Note Vails fo Rhogam <SEE NOTE> 3 Laboratory test finding 03/26/2004 Group A Antigen positive Laboratory test finding 10/17/2003 Beta-Hemolytic Strep, A Only Final report 4 Rapid Strep (Group A) negative Pos/Neg Result 1 Comment Laboratory test finding 09/14/2002 Rapid Strep (Group A) Negative Pos/ Neg Laboratory test finding 09/14/2002 Strep Screen Final 5 Laboratory test finding 09/11/2002 Rapid Strep (Group A) Negative Pos/ Neg Laboratory test finding 09/11/2002 Strep Screen Final 6 Laboratory test finding 06/07/2002 Rapid Strep (Group A) Negative Pos/ Neg Throat Culture Final 7 Laboratory test finding 12/16/2001 Fungal Smear Final 8 Gram Stain Additional Cancelled 9 Wound Culture Cancelled 10 Laboratory test finding 12/16/2001 Fungal Smear Final 11 Laboratory test finding 12/16/2001 Culture Skin No Growth Laboratory test finding 12/16/2001 TSH (Thyrotropin) 0.78 uIU/ml 0.49 - 4.67 Laboratory test finding 06/14/2000 Albumin 3.8 1 Alkaline Phosphatase 236 1 High 50-136 Alt 74 1 High 30-65 Ast 45 1 High 15-37 Basophil 1 Calcium 9.6 1 Carbon Dioxide 26 1 Chloride 103 1 Creatinine 0.6 1 Eosinophil 5 1 Fti 3.5 1 Hemoglobin 14.0 1 Lymphocyte 31 1 MCV 82.2 1 MPV 7.0 1 Mean Corposcular Hemaglobin 27.2 1 Monocyte 8 1 Neutrophil 55 1 Potassium 4.3 1 Protein Total 7.4 1 RBC Count 5.14 1 RDW 13.5 1 Sodium 137 1 T3 Uptake 33.6 1 23-40% T4 10.3 1 4.7-13.3 TSH 1.02 1 0.34-4.82 Total Bilirubin 0.25 1 Urea Nitrogen 10 1 blood glucose 88 1 High 50-80 hematocrit 42.2 1 High 34.0-42.0 mean corpuscular Hgb Concentr 33.1 1 platelets 233 1 white blood cell count 8.0 1 urinalysis 01/11/1999 pH 8 1 urinalysis 06/25/1998 pH 6 1 urinalysis 11/09/1997 [id number] 5 1 1 Rh Immune Globulin 2 /Maternal RBC Vials of RBC Ratio Approx. Volume Rhogam 0.0000-0.0045 ~15 ml 1 0.0046-0.0090 15- 30 ml 2 0.0091-0.0135 30-40 ml 3 0.0136-0.0180 40-60 ml 4 0.0181-0.0225 60-75 ml 5 3 Vails fo Rhogam listed are the recommended number of 1,500-IU Rh(D) immue globulin to adequately treat Rh NEGATIVE patients prophylacticly. 4 NEGATIVE No group A, beta hemolytic Streptococci isolated. 5 Source: THROAT No beta-streptococcus noted. 6 Source: THROAT No beta-streptococcus noted. 7 Source: THROAT Normal pharyngeal tamika 8 Source: SKIN SURFACE NO FUNGAL ELEMENTS NOTED 9 Source: SKIN SURFACE No wbc No bacteria seen 10 Source: SKIN SURFACE No growth. 11 HAIR STRANDS FOR TINEA CAPITUS; Source: MISCELLANEOUS TESTS NO FUNGAL ELEMENTS NOTED Procedures Date CPT Code Description Status 08/11/2017 69310 Arthrocentesis Major Joint/Bursa/Ganglion Cyst Completed Inject/Drain 08/11/2017 44806 Inject Tendon/Ligament/Cyst Completed 10/22/2009 84393 X-Ray Ankle Complete Completed 11/26/2008 51762 X-Ray Ankle Complete Completed 11/07/2008 09682 Apply Cast Short Leg Completed 10/29/2008 23640 X-Ray Ankle Complete Completed 10/22/2008 85205 FX Lateral Malleolus (Distal Fibula) W/O Manipulation Completed 03/09/2002 80248 Visual Screening Test Of Visual Acuity, Quantitative, Completed Bilateral 03/09/2002 21276 Pure Tone Hearing Test, Air Completed 01/11/1999 77391 Pure Tone Audiometry (Threshold) Air Only Completed 01/10/1998 62582 Acoustic Reflex Threshold Completed 12/10/1997 50841 Acoustic Reflex Threshold Completed 11/09/1997 08947 Developmental Testing Limited Completed 11/09/1997 53008 Acoustic Reflex Threshold Completed 07/30/1997 08923 IV Infusion Up To 1 Hour Completed 07/30/1997 44101 Spinal Puncture Lumbar Diagnostic Completed Encounters Type Date Location Provider CPT E/M Dx Office Visit 08/11/2017 [facility] [place], [address] M94.261 9:00a Nalini Oro M25.571 M65.871 M19.071 Office Visit 12/26/2015 1:00p [facility] M.D. 48846 G43.009 [place] Office Visit 12/02/2015 1:00p [facility] M.D. 55580 G43.009 [place] Z71.6 R53.83 Office Visit 02/04/2010 9:15a [place] [address] 824.2 Specialists 845.00 Office Visit 12/18/2009 2:45p [place] [address] 719.47 Specialists 845.00 824.2 Office Visit 12/10/2009 3:00p [facility] Lelo Israel, 76999 719.47 Specialists LABEL PINKER 845.00 Office Visit 11/14/2009 3:30p [facility] Lelo Israel, 95205 719.47 Specialists LABEL PINKER Office Visit 10/22/2009 3:15p [facility] Lelo Israel, 09191 719.47 Specialists LABEL PINKER Office Visit 04/08/2009 3:15p [facility] Lelo Israel 17990 824.2 Specialists LABEL PINKER Office Visit 10/22/2008 2:15p [facility] Lenny Matias 86155 824.2 Specialists IV MD [facility] Plan of Care Future Appointment(s):09/15/2017 9:00 am - ALFRED AzarP at [facility] Gnsryppxkoi43/03/2018 - Hansel Pascual JR, M.D.M94.261 Chondromalacia, right kneeM25.571 Pain in right ankle and joints of right footM65.871 Other synovitis and tenosynovitis, right ankle and footM19.071 Primary osteoarthritis, right ankle and foot
[2017-09-11 09:42] VITALS: BP 133/84
--- NOTE | 2017-09-11 09:42 | UC ---
Respiratory Complaint HPI - HPI Summary HPI Summary: Pt presents with a productive cough for the last 3 days. Last night she had phlegm that had a thin blood streak in it. She tells me that she has a hx of pneumonia on multiple occasions. Has not been out of the country recently. She is also concerned that she might be - she is trying to get . She has taken at home tests, which have been negative but she says with her last the home tests were negative, but the blood test was positive. She denies fever, chills, SOB, chest pain, abdominal pain, n/v/d/c. She is still smoking daily - History of Current Complaint Chief Complaint: UCRespiratory Stated Complaint: CHEST CONGESTION Time Seen by Provider: 09/11/17 09:42 Hx Obtained From: Patient Hx Last Menstrual Period: 08/05/18 Onset/Duration: Gradual Onset Severity Initially: Moderate Severity Currently: Moderate Pain Intensity: 7 Pain Scale Used: 0-10 Numeric Character: Cough: Productive - Allergies/Home Medications Allergies/Adverse Reactions: Allergies Allergy/AdvReac Type Severity Reaction Status Date / Time MS Cefprozil [From Cefzil] Allergy Hives Verified 09/11/17 09:37 MS Ketorolac Tromethamine AdvReac Severe See Comment Verified 09/11/17 09:37 [From Toradol] MS Oxycodone [From Percocet] AdvReac Severe seizure-like Verified 09/11/17 09:37 activity MS Codeine [Codeine] AdvReac See Comment Verified 09/11/17 09:37 MS Tramadol [Tramadol] AdvReac See Comment Verified 09/11/17 09:37 Home Medications: Home Medications Lisinopril/HCTZ 05/20.5(NF) [Zestoretic 05/20.5(NF)] 1 tab PO DAILY 09/11/17 [ History Confirmed 09/11/17] Topiramate TAB(*) [Topamax 100 mg tab] 100 mg PO BID 09/11/17 [History Confirmed 09/11/17] PMH/Surg Hx/FS Hx/Imm Hx Previously Healthy: Yes Endocrine History: Diabetes Cardiovascular History: Hypertension Respiratory History: Asthma Other History Of: Negative For: HIV, Hepatitis B, Hepatitis C - Surgical History Surgical History: Yes Surgery Procedure, Year, and Place: tonsillectomy 1998. 1/3/14. nerve decompression 02/06/14 OF LEFT ANKLE - Family History Known Family History: Positive: Hypertension, Diabetes - Social History Occupation: Employed Full-time Lives: With Family Alcohol Use: Rare Substance Use Type: None Smoking Status (MU): Heavy Every Day Tobacco Smoker Type: Cigarettes Amount Used/How Often: 1/2 PPD DAY Have You Smoked in the Last Year: Yes Cessation Counseling: Counseled 3+Min - 10 Min Review of Systems Constitutional: Negative Skin: Negative Eyes: Negative ENT: Negative Respiratory: Cough Cardiovascular: Negative Gastrointestinal: Negative Genitourinary: Negative Neurovascular: Negative Musculoskeletal: Negative Neurological: Negative Psychological: Negative All Other Systems Reviewed And Are Negative: Yes Physical Exam Triage Information Reviewed: Yes Appearance: Well-Appearing, No Pain Distress, Well-Nourished Vital Signs: Initial Vital Signs Temp 99 F 09/11/17 09:39 Pulse 91 09/11/17 09:39 Resp 19 09/11/17 09:39 BP 133/84 09/11/17 09:39 Pulse Ox 100 09/11/17 09:39 Vital Signs Reviewed: Yes Eyes: Positive: Conjunctiva Clear. Negative: Conjunctiva Inflamed, Discharge ENT: Positive: Hearing grossly normal, Pharynx normal, TMs normal, Uvula midline. Negative: Pharyngeal erythema, Nasal congestion, Nasal drainage, TM bulging, TM dull, TM red, Tonsillar swelling, Tonsillar exudate, Muffled voice, Hoarse voice, Sinus tenderness Neck: Positive: Supple, Nontender, No Lymphadenopathy Respiratory: Positive: Chest non-tender, Lungs clear, No respiratory distress, No accessory muscle use, Wheezing - Mild throughout Cardiovascular: Positive: RRR, No Murmur, Pulses Normal Neurological: Positive: Alert. Negative: Fatigued Psychological: Positive: Age Appropriate Behavior Skin: Negative: rashes UC Diagnostic Evaluation - Laboratory O2 Sat by Pulse Oximetry: 100 Respiratory Course/Dx - Course Course Of Treatment: Suspect bronchitis, but given her hx of PNA and underlying asthma - will treat with azithromycin. Lab draw for - Differential Dx/Diagnosis Provider Diagnoses: Bronchitis Discharge - Discharge Plan Condition: Stable Disposition: HOME Prescriptions: Albuterol HFA INHALER* [Ventolin HFA Inhaler*] 1 - 2 puff INH Q6H PRN #1 mdi PRN Reason: Sob/Wheezing Azithromycin TAB* [Zithromax TAB (Z-LOR) 250 mg #6 tabs] 2 tab PO .TODAY, THEN 1 DAILY #1 lor Patient Education Materials: Upper Respiratory Infection (DC) Referrals: Alyce Navarro NP [Primary Care Provider] - Additional Instructions: If you develop a fever, shortness of breath, chest pain, new or worsening symptoms - please call your PCP or go to the ED.
== END 2017-09-11 10:15 | disposition home or self-care (01) ==
LOC: UCEAST 09:28
DX: J40 Bronchitis, not specified as acute or chronic (principal); J45.909 Unspecified asthma, uncomplicated; I10 Essential (primary) hypertension; Z32.02 Encounter for pregnancy test, result negative; F17.200 Nicotine dependence, unspecified, uncomplicated
CPT/HCPCS: 36415; 84702; 99212; G0463

== ENCOUNTER 2017-09-25 17:33 | Emergency (ER) | payer BC ==
[2017-09-25] MEDS ORDERED: Morphine INJ* 4 MG/ML 1 ML SYRINGE (NEW SYRINGE VERSION) IV ONE (19:40)
[2017-09-25] MEDS ORDERED: Metoclopramide IV* 5 MG/ML 2 ML VIAL IV SLOW PU ONE (19:40)
[2017-09-25] MEDS ORDERED: NS 0.9% 1000 ML* 1,000 ML IV ONE (19:41)
[2017-09-25] MEDS ORDERED: diPHENhydraMINE IV* 50 MG/ML 1 ml VIAL (BENADRYL) SLOW PUSH ONE (19:41)
[2017-09-25] MEDS ORDERED: Morphine INJ* 4 MG/ML 1 ML SYRINGE (NEW SYRINGE VERSION) ONE (19:45)
[2017-09-25] MEDS: Morphine INJ* 4 MG/ML 1 ML CARPUJECT IV ONE ×2 (20:00→21:37)
--- NOTE | 2017-09-25 21:19 | ED ---
Duc Tamez Julia, scribed for Anneliese Osborn MD on 09/25/17 at 2017 . Headache - HPI Summary HPI Summary: This patient is a 22 year old F presenting to [facility] with a chief complaint of right sided migraine beginning as a headache for the past few hours. Patient reports photophobia and nausea. Patient denies fever and numbness. The patient rates the pain 9/10 in severity. Symptoms aggravated by light. Symptoms unchanged by her typical migraine medication, Topamax and Hydrocodone. Patient is scheduled to have and MRI and sleep study done on 09/27/17. Patient has a history of migraines. Her LNMP began last evening. - History Of Current Complaint Chief Complaint: EDHeadache Stated Complaint: HEADACHE 4 DAYS Time Seen by Provider: 09/25/17 19:19 Hx Obtained From: Patient Hx Last Menstrual Period: 09/24/17 Onset/Duration: Started hours ago Currently Pain Is: Current Pain Scale(0-10)= - 9 Timing: Constant Character: Migraine Location of Headache: Other: - right sided Aggravating Factor: Bright Lights Allevating Factors: Nothing Associated Signs And Symptoms: Nausea Related History: Similar Episode/DX As: - migranes - Allergies/Home Medications Allergies/Adverse Reactions: Allergies Allergy/AdvReac Type Severity Reaction Status Date / Time MS Cefprozil [From Cefzil] Allergy Hives Verified 09/11/17 09:37 MS Ketorolac Tromethamine AdvReac Severe See Comment Verified 09/11/17 09:37 [From Toradol] MS Oxycodone [From Percocet] AdvReac Severe seizure-like Verified 09/11/17 09:37 activity MS Codeine [Codeine] AdvReac See Comment Verified 09/11/17 09:37 MS Tramadol [Tramadol] AdvReac See Comment Verified 09/11/17 09:37 PMH/Surg Hx/FS Hx/Imm Hx Endocrine/Hematology History: Reports: Hx Anemia - CHRONIC- ON IRON Denies: Hx Bone Marrow Disease, Hx Diabetes, Hx Sickle Cell Disease, Hx Thyroid Disease Cardiovascular History: Denies: Hx Congestive Heart Failure, Hx Deep Vein Thrombosis, Hx Hypertension , Hx Myocardial Infarction, Hx Pacemaker/ICD Respiratory History: Reports: Hx Asthma Denies: Hx Chronic Obstructive Pulmonary Disease (COPD), Hx Lung Cancer, Hx Pneumonia, Hx Pulmonary Embolism GI History: Reports: Other GI Disorders - OCC HEARTBURN Denies: Hx Gall Bladder Disease, Hx Gastrointestinal Bleed, Hx Ulcer, Hx Urosepsis History: Denies: Hx Kidney Stones, Hx Renal Disease Sensory History: Reports: Hx Contacts or Glasses - CONTACTS Denies: Hx Hearing Aid Opthamlomology History: Reports: Hx Contacts or Glasses - CONTACTS Neurological History: Reports: Hx Migraine, Hx Seizures - She has seizures with narcotics. Denies: Hx Dementia, Hx Transient Ischemic Attacks (TIA) Psychiatric History: Reports: Hx Depression - ON LEXAPRO FOR PP DEPRESSION Denies: Hx Anxiety, Hx Panic Disorder, Hx Schizophrenia, Hx Bipolar Disorder - Surgical History Surgery Procedure, Year, and Place: c-cection,t&a,ankle Hx Anesthesia Reactions: Yes - EPIDURAL WITH CSECTION "DIDNT WORK" NEEDED GENERAL ANESTHESIA - Immunization History Date of Tetanus Vaccine: UTD Date of Influenza Vaccine: NONE Infectious Disease History: No Infectious Disease History: Denies: Hx Clostridium Difficile, Hx Hepatitis, Hx Human Immunodeficiency Virus (HIV), Hx of Known/Suspected MRSA, Hx Shingles, Hx Tuberculosis, Hx Known/ Suspected VRE, Hx Known/Suspected VRSA, History Other Infectious Disease, Traveled Outside the [place] in Last 30 Days - Family History Known Family History: Positive: Hypertension, Diabetes - Social History Alcohol Use: Rare Substance Use Type: Reports: None Smoking Status (MU): Heavy Every Day Tobacco Smoker Type: Cigarettes Amount Used/How Often: 1/2 PPD DAY Have You Smoked in the Last Year: Yes Review of Systems Negative: Fever Positive: Photophobia Positive: Headache - migraine. Negative: Numbness All Other Systems Reviewed And Are Negative: Yes Physical Exam - Summary Physical Exam Summary: VITAL SIGNS: Reviewed. GENERAL: Patient is a well-developed and nourished female who is lying comfortable in the stretcher. Patient is not in any acute respiratory distress. HEAD AND FACE: No signs of trauma. No ecchymosis, hematomas or skull depressions. No sinus tenderness. EYES: PERRLA, EOMI x 2, No injected conjunctiva, no nystagmus. EARS: Hearing grossly intact. Ear canals and tympanic membranes are within normal limits. MOUTH: Oropharynx within normal limits. NECK: Supple, trachea is midline, no adenopathy, no JVD, no carotid bruit, no c- spine tenderness, neck with full ROM. CHEST: Symmetric, no tenderness at palpation LUNGS: Clear to auscultation bilaterally. No wheezing or crackles. CVS: Regular rate and rhythm, S1 and S2 present, no murmurs or gallops appreciated. ABDOMEN: Soft, non-tender. No signs of distention. No rebound no guarding, and no masses palpated. Bowel sounds are normal. EXTREMITIES: FROM in all major joints, no edema, no cyanosis or clubbing. NEURO: Alert and oriented x 3. No acute neurological deficits. Speech is normal and follows commands. SKIN: Dry and warm Triage Information Reviewed: Yes Vital Signs On Initial Exam: Initial Vitals Temp Pulse Resp BP Pulse Ox 97.8 F 79 18 154/93 100 09/25/17 17:39 09/25/17 17:39 09/25/17 17:39 09/25/17 17:39 09/25/17 17:39 Vital Signs Reviewed: Yes Diagnostics - Vital Signs Vital Signs Temp Pulse Resp BP Pulse Ox 09/25/17 17:39 97.8 F 79 18 154/93 100 - Laboratory Lab Statement: Any lab studies that have been ordered have been reviewed, and results considered in the medical decision making process. Headache Course/Dx - Course Course Of Treatment: Patient presents with right sided migraine beginning as a headache for the past few hours. Patient reports photophobia and nausea. Patient is given Benadryl, Reglan and Morphine for symptoms. She states that she is feeling better in the ED. Patient is instructed to follow up with Dr. Ervin, neurologist, for further treatment. - Diagnoses Provider Diagnoses: Migraine Discharge - Discharge Plan Condition: Stable Disposition: HOME Patient Education Materials: Migraine Headache (ED) Referrals: Alyce Navarro NP [Primary Care Provider] - 2 Days Lelo Ervin MD [Medical Doctor] - 2 Days Additional Instructions: RETURN TO THE EMERGENCY DEPARTMENT FOR CHANGING OR WORSENING SYMPTOMS. The documentation as recorded by the Duc bob Julia accurately reflects the service I personally performed and the decisions made by , Anneliese Osborn MD.
[2017-09-25 21:44] VITALS: BP 105/60
== END 2017-09-25 21:46 | disposition home or self-care (01) ==
LOC: ED 17:33
DX: G43.909 Migraine, unspecified, not intractable, without status migrainosus (principal); H53.149 Visual discomfort, unspecified; F17.210 Nicotine dependence, cigarettes, uncomplicated
CPT/HCPCS: 99283; J1200; J2270; J2765

== ENCOUNTER 2017-09-27 16:43 | Emergency (ER) | payer BC ==
[2017-09-27] MEDS ORDERED: Ondansetron INJ* 2 MG/ML VIAL IV ONE (17:22)
[2017-09-27] MEDS ORDERED: NS 0.9% 1000 ML* 1,000 ML IV ONE ×2 (17:22→20:03)
[2017-09-27] MEDS ORDERED: Morphine INJ* 10 MG/ML 1 ML CARPUJECT IV ONE (18:50)
[2017-09-27] MEDS ORDERED: diPHENhydraMINE IV* 50 MG/ML 1 ml VIAL (BENADRYL) IV ONE (18:50)
--- NOTE | 2017-09-27 18:51 | ED ---
Headache - HPI Summary HPI Summary: 22 female presents to ED with complaints of migraine that has been ongoing for the past 7 days. Patient states she is photophobic, experiencing nausea, vomiting, and diffuse headache, more on right side. Admits to chronic migraines with last "bad one" being last June 2017. Patient tried taking at home migraine preventative medications (topamax and advil, norco) at home without relief. States her pain is currently a 9/10. Was here 2 nights ago and had some relief, however it has since returned again. Had an MRI taken this morning. Is also scheduled to have an EEG and sleep study. No numbness/tingling or weakness. No other complaints. Denies neck pain, stiffness, dizziness and fever. No recent illness or congestion. States this is a pretty "typical bad migraine". Denies any trauma or injury. No recent other medication use. PMHx PCOS and HTN. Sometimes has blurry vision in right eye. No joint aches, tick bites or rash. - History Of Current Complaint Chief Complaint: EDHeadache Stated Complaint: HEADACHE Time Seen by Provider: 09/27/17 17:22 Hx Obtained From: Patient Hx Last Menstrual Period: 09/24/17 Onset/Duration: Sudden Onset, Started weeks ago - 1, Still Present, Worse Since Initially Headache Was: Initial Pain Scale(0-10)= - 5 Currently Pain Is: Current Pain Scale(0-10)= - 9 Timing: Constant Character: Throbbing, Typical Headache, Migraine Location of Headache: Diffuse - more on right parietal Aggravating Factor: Exertion, Position Change, Bright Lights Allevating Factors: Nothing Associated Signs And Symptoms: Nausea - Risk Factors SAH Risk Factors: Negative Meningitis Risk Factors: Negative SDH Risk Factors: Negative - Allergies/Home Medications Allergies/Adverse Reactions: Allergies Allergy/AdvReac Type Severity Reaction Status Date / Time acetaminophen [From Percocet] Allergy See Comment Verified 09/27/17 17:28 cefprozil [From Cefzil] Allergy Hives Verified 09/27/17 17:28 codeine Allergy See Comment Verified 09/27/17 17:28 ketorolac Allergy See Comment Verified 09/27/17 17:28 oxycodone [From Percocet] Allergy See Comment Verified 09/27/17 17:28 tramadol Allergy See Comment Verified 09/27/17 17:28 PMH/Surg Hx/FS Hx/Imm Hx Endocrine/Hematology History: Reports: Hx Anemia - CHRONIC- ON IRON Denies: Hx Bone Marrow Disease, Hx Diabetes, Hx Sickle Cell Disease, Hx Thyroid Disease Cardiovascular History: Denies: Hx Congestive Heart Failure, Hx Deep Vein Thrombosis, Hx Hypertension , Hx Myocardial Infarction, Hx Pacemaker/ICD Respiratory History: Reports: Hx Asthma Denies: Hx Chronic Obstructive Pulmonary Disease (COPD), Hx Lung Cancer, Hx Pneumonia, Hx Pulmonary Embolism GI History: Reports: Other GI Disorders - OCC HEARTBURN Denies: Hx Gall Bladder Disease, Hx Gastrointestinal Bleed, Hx Ulcer, Hx Urosepsis History: Denies: Hx Kidney Stones, Hx Renal Disease Sensory History: Reports: Hx Contacts or Glasses - CONTACTS Denies: Hx Hearing Aid Opthamlomology History: Reports: Hx Contacts or Glasses - CONTACTS Neurological History: Reports: Hx Migraine, Hx Seizures - She has seizures with narcotics. Denies: Hx Dementia, Hx Transient Ischemic Attacks (TIA) Psychiatric History: Reports: Hx Depression - ON LEXAPRO FOR PP DEPRESSION Denies: Hx Anxiety, Hx Panic Disorder, Hx Schizophrenia, Hx Bipolar Disorder - Surgical History Surgery Procedure, Year, and Place: c-cection,t&a,ankle Hx Anesthesia Reactions: Yes - EPIDURAL WITH CSECTION "DIDNT WORK" NEEDED GENERAL ANESTHESIA - Immunization History Date of Tetanus Vaccine: UTD Date of Influenza Vaccine: NONE Infectious Disease History: No Infectious Disease History: Denies: Hx Clostridium Difficile, Hx Hepatitis, Hx Human Immunodeficiency Virus (HIV), Hx of Known/Suspected MRSA, Hx Shingles, Hx Tuberculosis, Hx Known/ Suspected VRE, Hx Known/Suspected VRSA, History Other Infectious Disease, Traveled Outside the [place] in Last 30 Days - Family History Known Family History: Positive: Hypertension, Diabetes - Social History Alcohol Use: Rare Substance Use Type: Reports: None Smoking Status (MU): Heavy Every Day Tobacco Smoker Type: Cigarettes Amount Used/How Often: 1/2 PPD DAY Have You Smoked in the Last Year: Yes Review of Systems Constitutional: Negative Positive: Photophobia Cardiovascular: Negative Respiratory: Negative Positive: Headache All Other Systems Reviewed And Are Negative: Yes Physical Exam Triage Information Reviewed: Yes Vital Signs On Initial Exam: Initial Vitals Temp Pulse Resp BP Pulse Ox 97.8 F 80 16 155/88 96 09/27/17 16:48 02/19/18 16:48 09/27/17 16:48 09/27/17 16:48 09/27/17 16:48 BP improved Vital Signs Reviewed: Yes Appearance: Positive: Well-Appearing, No Pain Distress - mild to moderate, in dark room wearing sunglasses, Well-Nourished Skin: Positive: Warm, Skin Color Reflects Adequate Perfusion, Dry, Other - normal skin turgor. Negative: Cold, Numb Head/Face: Positive: Normal Head/Face Inspection. Negative: Temporal Artery Tenderness, Scalp Eyes: Positive: Normal, EOMI, RENATO, Conjunctiva Clear, Other: - normal visual acuity, did note photophobia ENT: Positive: Normal ENT inspection, Hearing grossly normal, Pharynx normal, TMs normal, Uvula midline. Negative: Nasal congestion, Nasal drainage, Tonsillar swelling, Tonsillar exudate Neck: Positive: Supple, Nontender, No Lymphadenopathy Respiratory/Lung Sounds: Positive: Clear to Auscultation, Breath Sounds Present. Negative: Rales, Rhonchi, Wheezes Cardiovascular: Positive: Normal, RRR, Pulses are Symmetrical in both Upper and Lower Extremities. Negative: Murmur, Rub Abdomen Description: Positive: Nontender, Soft Bowel Sounds: Positive: Present Musculoskeletal: Positive: Normal, Strength/ROM Intact. Negative: Limited @, Interruption @, Pain @ Neurological: Positive: Normal - memory and concentration intact, normal neuro exam without deficit., Sensory/Motor Intact, Alert, Oriented to Person Place, Time, CN Intact II-III, Reflexes Intact, NV Bundle Intact Distally, Normal Gait , Finger to Nose - normal, Facial Symmetry, Speech Normal - Jasmin Coma Scale Best Eye Response: 4 - Spontaneous Best Motor Response: 6 - Obeys Commands Best Verbal Response: 5 - Oriented Coma Scale Total: 15 Diagnostics - Vital Signs Vital Signs Temp Pulse Resp BP Pulse Ox 09/27/17 16:48 97.8 F 80 16 155/88 96 - Laboratory Lab Statement: Any lab studies that have been ordered have been reviewed, and results considered in the medical decision making process. Re-Evaluation - Re-Evaluation First Eval Re-Evaluation Time: 19:55 Change: Unchanged - little relief, will attempt more fluids Headache Course/Dx - Course Course Of Treatment: patient being followed by Dr Ervin, neurologist. Had MRI today and results were: normal brain MRI. without any abnormal findings. labs and further work up initiated and being followed by neurologist. patient appears to be needing abortive migraine medications. given fluids, zofran, benadryl and morphine with relief. continue pain medcations already taking at home. recommend anti inflammatory as well just as ibuprofen or trying excedrin. rest, increase fluid intake and appropriated diet, which she was educated on. no other concerns at this time. aware of worsening signs and symptoms to watch out for. follow up with Dr Ervin. normal vitals. - Diagnoses Differential Diagnosis/HQI/PQRI: Migraine, Tension Headache Provider Diagnoses: Migraine Discharge - Discharge Plan Condition: Stable Disposition: HOME Patient Education Materials: Migraine Headache (ED) Forms: *Work Release Referrals: Alyce Navarro NP [Primary Care Provider] - Lelo Ervin MD [Medical Doctor] - Additional Instructions: Increase fluid intake. Continue pain and migraine medication at home, recommend trying ibuprofen or excedrin as well. Avoid bright lights and stimulating activities. Rest. Avoid chocolates, alcohol and migraine stimulating foods. Focus on eating a healthy nutritional diet. Follow up with neurologist. Any new or worsening signs/symptoms please seek medical attention promptly, as discussed.
[2017-09-27] MEDS ORDERED: HYDROmorphone INJ* 2 MG/ML CARPUJECT SYRINGE IV SLOW PU ONE (20:04)
[2017-09-27 21:16] VITALS: BP 126/58
== END 2017-09-27 21:19 | disposition home or self-care (01) ==
LOC: ED 16:43
DX: G43.909 Migraine, unspecified, not intractable, without status migrainosus (principal); F17.210 Nicotine dependence, cigarettes, uncomplicated; Z88.6 Allergy status to analgesic agent; Z88.5 Allergy status to narcotic agent
CPT/HCPCS: 96361; 96374; 96375; 99282; J1170; J1200; J2270; J2405

== ENCOUNTER 2018-01-16 19:58 | Emergency (ER) | payer BC ==
--- OUTSIDE RECORDS SUMMARY | 2018-01-16 20:25 | XMS REPORT | Continuity of Care Document ---
:1995 Author Organization [facility] Care Team Providers Name Role Phone RHEA HAWKINS Admitting Physician RHEA HAWKINS Attending Physician UNKNOWN, UNKNOWN Primary Care Physician Unavailable Allergies and Intolerances Code Code Allergy Type Reaction Severity Start End Status System Substance Date Date 2670 RXNorm Codeine Propensity to tremors/sei Unknown Active adverse zures reactions to drug (disorder) 323150 RXNorm Cefzil Drug allergy Hives Moderate Active (disorder) 995 7804 RXNorm Oxycodone Propensity to Tremors/sei Moderate Active adverse zures 009 reactions to drug (disorder) 732228 RXNorm Percocet Propensity to Tremors/sei Moderate Active adverse zures 009 reactions to drug (disorder) 05382 RXNorm Tramadol Propensity to Tremors/sei Moderate Active adverse zures 009 reactions to drug (disorder) 05043 RXNorm Toradol Propensity to seizure Moderate Active adverse 015 reactions to drug (disorder) 5489 RXNorm Hydrocodone Drug allergy Unknown 03/22/ (disorder) 2013 Medications RxNorm Medication Dose Route Instructions Start End Status Date Date Acetaminophen 500 mg oral orally every 6 Active hours as needed. Albuterol HFA Inhaler 2 inh Inhalation inhaled 4 times Active 90 mcg/actuation per day as needed. 19780313 Hydrochlorothiazide 1 tab oral orally every Active 12.5 MG / Lisinopril 10 day MG Oral Tablet Ibuprofen 800 MG Oral 800 mg oral orally every 6 Active Tablet hours as needed. 326811 Metformin hydrochloride 500 mg oral orally 2 times Active 500 MG Oral Tablet per day 19790812 Naproxen 500 MG Oral 500 mg oral orally every 12 Active Tablet hours (10 days) (administer with food or milk) 38930 topiramate 150 mg oral orally every Active evening 19980317 topiramate 100 MG Oral 100 mg oral orally every Active Tablet morning Problems Code Code System Problem Name Start Date End Date Status [id number] [facility] Polycystic ovaries 05/2013 Active [id number] [facility] Patient currently 05/2013 Completed Procedures No data in the system Results Pathology Results Order:PATHOLOGY CYTOLOGY HISTOLCollected Date : 01/06/2018 12:00:00 AM HISTORY: Z01.419. LAST PAP SMEAR AND RESULTS-UNKNOWN. SCREENING. SPECIMEN DESCRIPTION: SUREPATH PAP SCREENING, CERVICAL ENDOCERVICAL SPECIMEN ADEQUACY SATISFACTORY ENDOCERVICAL CELLS ARE SCANT. GENERAL CATEGORIZATION: BENIGN CELLULAR CHANGES DESCRIPTIVE DIAGNOSIS: PREDOMINANCE OF COCCOBACILLI CONSISTENT WITH A SHIFT IN VAGINAL ERNESTO. BRUNO FIERRO (ASCP) (CASE SIGNED 01/10/2018) Social History Code Code System Social History Description Dates Observed Observation [id number] [facility] Current Smoking Unknown if ever Status smoked UNK AdministrativeGender Sex Assigned At Unknown Vital Signs No data in the system Goals Section No data in the system Health Concerns No data in the systemEncounter Diagnosis Date Code Code System Diagnosis Status Z12.4 ICD10 ENC SCREENING MALIG NEOPLASM CERV Active Advance Directives *RHIO - CONSENT IS YES Directive Type Effective Date Entry Processor Notes Supporting Document Name Address Phone No Directive Type 07/07/2015 Not Specified Not Specified Not Specified None No specified 10:46:32 AM PT STATES NO ADVANCE DIRECTIVES Directive Type Effective Date Entry Processor Notes Supporting Document Name Address Phone No Directive Type 04/07/2013 5:54:59 Not Specified Not Specified Not Specified None No specified AM Family History Relationship: Maternal Grandmother Health Problem Age At Onset Notes CA - Lung cancer (Malignant tumor of lung) Functional Status No data in the system Immunizations No data in the system Medical Equipment No data in the system Mental Status No data in the system Assessment and Plan Assessments No data in the systemPlan Of Treatment No data in the systemPending Tests No data in the system Hospital Discharge Instructions No data in the system Reason for Visit No data in the system
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
[2018-01-16] MEDS ORDERED: Metoclopramide IV* 5 MG/ML 2 ML VIAL IV SLOW PU ONE (21:43)
[2018-01-16] MEDS ORDERED: diPHENhydraMINE IV* 50 MG/ML 1 ml VIAL (BENADRYL) IV ONE (21:43)
[2018-01-16] MEDS ORDERED: NS 0.9% 1000 ML* 1,000 ML IV ONE (21:43)
[2018-01-16 22:04] LABS: ABS Basophils 0.1 10^3/ul (0-0.2); ABS Eosinophils 0.3 10^3/ul (0-0.6); ABS Lymphocytes 3.3 10^3/ul (1.0-4.8); ABS Monocytes 0.5 10^3/ul (0-0.8); ABS Neutrophils 5.9 10^3/ul (1.5-7.7); ABS Nucleated RBC 0 10^3/ul; Eosinophil % 2.8 % (0-6); Hematocrit 39 % (35-47); Lymphocyte % 32.5 % (25-47); Mean Corpuscular HGB Conc 34 g/dl (31-36); Mean Corpuscular Hemoglobin 29 pg (27-31); Mean Corpuscular Volume 87 fL (80-97); Mean Platelet Volume 8.6 um3 (7.4-10.4); Nucleated Red Blood Cells % 0.1; Platelet Count 178 10^3/ul (150-450); Red Blood Count 4.46 10^6/ul (4.0-5.4); Red Cell Distribution Width 14 % (10.5-15); White Blood Count 10.1 10^3/ul (3.5-10.8)
[2018-01-16 22:15] LABS: EGFR Non-African American 81.1 (>60)
[2018-01-16] MEDS ORDERED: Morphine VIAL* 4 MG/ML VIAL (1 ml vial) IV ONE (22:49)
--- NOTE | 2018-01-16 23:28 | ED ---
Headache - HPI Summary HPI Summary: 22-year-old presents with headache for the past couple days. She states she started a new control last week is the only new medication (previfem). States she has history of migraines. No migraines the past 3 months has been on Topamax. She states she took some Tylenol ibuprofen without relief. She states her headache is not the worst of her life. States it is about a 7 out of 10. States is where her normal migraine is. No fevers. No neck stiffness. She is to photophobia and some blurry vision. No chest pain or shortness of breath. No dizziness. - History Of Current Complaint Chief Complaint: EDHeadache Stated Complaint: MIGRAINE Time Seen by Provider: 01/16/18 21:34 Hx Last Menstrual Period: 09/24/17 - Allergies/Home Medications Allergies/Adverse Reactions: Allergies Allergy/AdvReac Type Severity Reaction Status Date / Time cefprozil [From Cefzil] Allergy Hives Verified 01/16/18 20:19 codeine Allergy See Comment Verified 01/16/18 20:19 ketorolac Allergy See Comment Verified 01/16/18 20:19 oxycodone [From Percocet] Allergy See Comment Verified 01/16/18 20:19 tramadol Allergy See Comment Verified 01/16/18 20:19 Home Medications: Home Medications Norgestimate-Ethinyl Estradiol [Tri-Previfem Tablet] 1 each PO DAILY 01/16/18 [ History Confirmed 01/16/18] Topiramate [Topiramate ER 150 mg cap] 150 mg PO QPM 01/16/18 [History Confirmed 01/16/18] PMH/Surg Hx/FS Hx/Imm Hx Endocrine/Hematology History: Reports: Hx Anemia - CHRONIC- ON IRON Denies: Hx Bone Marrow Disease, Hx Diabetes, Hx Sickle Cell Disease, Hx Thyroid Disease Cardiovascular History: Denies: Hx Congestive Heart Failure, Hx Deep Vein Thrombosis, Hx Hypertension , Hx Myocardial Infarction, Hx Pacemaker/ICD Respiratory History: Reports: Hx Asthma Denies: Hx Chronic Obstructive Pulmonary Disease (COPD), Hx Lung Cancer, Hx Pneumonia, Hx Pulmonary Embolism GI History: Reports: Other GI Disorders - OCC HEARTBURN Denies: Hx Gall Bladder Disease, Hx Gastrointestinal Bleed, Hx Ulcer, Hx Urosepsis History: Denies: Hx Kidney Stones, Hx Renal Disease Sensory History: Reports: Hx Contacts or Glasses - CONTACTS Denies: Hx Hearing Aid Opthamlomology History: Reports: Hx Contacts or Glasses - CONTACTS Neurological History: Reports: Hx Migraine, Hx Seizures - She has seizures with narcotics. Denies: Hx Dementia, Hx Transient Ischemic Attacks (TIA) Psychiatric History: Reports: Hx Depression - ON LEXAPRO FOR PP DEPRESSION Denies: Hx Anxiety, Hx Panic Disorder, Hx Schizophrenia, Hx Bipolar Disorder - Surgical History Surgery Procedure, Year, and Place: c-cection,t&a,ankle Hx Anesthesia Reactions: Yes - EPIDURAL WITH CSECTION "DIDNT WORK" NEEDED GENERAL ANESTHESIA - Immunization History Date of Tetanus Vaccine: UTD Date of Influenza Vaccine: NONE Infectious Disease History: No Infectious Disease History: Denies: Hx Clostridium Difficile, Hx Hepatitis, Hx Human Immunodeficiency Virus (HIV), Hx of Known/Suspected MRSA, Hx Shingles, Hx Tuberculosis, Hx Known/ Suspected VRE, Hx Known/Suspected VRSA, History Other Infectious Disease, Traveled Outside the [place] in Last 30 Days - Family History Known Family History: Positive: Hypertension, Diabetes - Social History Alcohol Use: Occasionally Substance Use Type: Reports: None Smoking Status (MU): Light Every Day Tobacco Smoker Type: Cigarettes Amount Used/How Often: 1/2 PPD DAY Have You Smoked in the Last Year: Yes Review of Systems Negative: Fever Negative: Chest Pain Negative: Shortness Of Breath Positive: Headache All Other Systems Reviewed And Are Negative: Yes Physical Exam Triage Information Reviewed: Yes Vital Signs On Initial Exam: Initial Vitals Temp Pulse Resp BP Pulse Ox 98.4 F 61 15 133/74 100 01/16/18 20:15 01/16/18 20:15 01/16/18 20:15 01/16/18 20:15 01/16/18 20:15 Vital Signs Reviewed: Yes Appearance: Positive: Well-Appearing Skin: Positive: Warm, Dry Head/Face: Positive: Normal Head/Face Inspection Eyes: Positive: Normal, EOMI, RENATO, Conjunctiva Clear ENT: Positive: Normal ENT inspection, Pharynx normal, TMs normal Respiratory/Lung Sounds: Positive: Clear to Auscultation, Breath Sounds Present Cardiovascular: Positive: Normal, RRR Abdomen Description: Positive: Nontender, Soft Bowel Sounds: Positive: Present Musculoskeletal: Positive: Normal Neurological: Positive: Sensory/Motor Intact, Alert, Oriented to Person Place, Time, CN Intact II-III, Finger to Nose Psychiatric: Positive: Normal Diagnostics - Vital Signs Vital Signs Temp Pulse Resp BP Pulse Ox 01/16/18 23:16 16 01/16/18 20:15 98.4 F 61 15 133/74 100 - Laboratory Lab Results: Lab Results 01/16/18 01/16/18 Range/Units 21:53 21:53 WBC 10.1 (3.5-10.8) 10^3/ul RBC 4.46 (4.0-5.4) 10^6/ul Hgb 13.0 (12.0-16.0) g/dl Hct 39 (35-47) % MCV 87 (80-97) fL MCH 29 (27-31) pg MCHC 34 (31-36) g/dl RDW 14 (10.5-15) % Plt Count 178 (150-450) 10^3/ul MPV 8.6 (7.4-10.4) um3 Neut % (Auto) 58.6 (38-83) % Lymph % (Auto) 32.5 (25-47) % Clinch % (Auto) 5.4 (0-7) % Eos % (Auto) 2.8 (0-6) % Baso % (Auto) 0.7 (0-2) % Absolute Neuts (auto) 5.9 (1.5-7.7) 10^3/ul Absolute Lymphs (auto) 3.3 (1.0-4.8) 10^3/ul Absolute Monos (auto) 0.5 (0-0.8) 10^3/ul Absolute Eos (auto) 0.3 (0-0.6) 10^3/ul Absolute Basos (auto) 0.1 (0-0.2) 10^3/ul Absolute Nucleated RBC 0 10^3/ul Nucleated RBC % 0.1 Sodium 139 (139-145) mmol/L Potassium 4.1 (3.5-5.0) mmol/L Chloride 107 (101-111) mmol/L Carbon Dioxide 24 (22-32) mmol/L Anion Gap 8 (2-11) mmol/L BUN 8 (6-24) mg/dL Creatinine 0.86 (0.51-0.95) mg/dL Est GFR ( Amer) 104.3 (>60) Est GFR (Non-Af Amer) 81.1 (>60) BUN/Creatinine Ratio 9.3 (8-20) Glucose 109 H (70-100) mg/dL Calcium 8.7 (8.6-10.3) mg/dL Total Bilirubin 0.20 (0.2-1.0) mg/dL AST 16 (13-39) U/L ALT 23 (7-52) U/L Alkaline Phosphatase 75 (34-104) U/L Total Protein 6.7 (6.4-8.9) g/dL Albumin 3.9 (3.2-5.2) g/dL Globulin 2.8 (2-4) g/dL Albumin/Globulin Ratio 1.4 (1-3) Result Diagrams: 01/16/18 21:53 01/16/18 21:53 Lab Statement: Any lab studies that have been ordered have been reviewed, and results considered in the medical decision making process. Re-Evaluation - Re-Evaluation First Eval Re-Evaluation Time: 23:00 Change: Improved Comment: pain is 5 out of 10 Second Eval Re-Evaluation Time: 23:53 Change: Improved Comment: pain gone have a little morphine Headache Course/Dx - Course Course Of Treatment: 22-year-old presents with headache for the past couple days. She states she started a new control last week is the only new medication (previfem). States she has history of migraines. No migraines the past 3 months has been on Topamax. She states she took some Tylenol ibuprofen without relief. She states her headache is not the worst of her life. States it is about a 7 out of 10. States is where her normal migraine is. No fevers. No neck stiffness. She is to photophobia and some blurry vision. No chest pain or shortness of breath. No dizziness. On exam normal neuro exam. Labs within normal limits. Gave him Reglan and benadryl feeling better. gave morphine and pain resolved. told to follow up with ob to discuss OCP as may have caused headache. patient understand and agrees with plan. - Diagnoses Differential Diagnosis/HQI/PQRI: Migraine, Tension Headache, Viral Syndrome Provider Diagnoses: Headache Discharge - Sign-Out/Discharge Documenting (check all that apply): Discharge/Admit/Transfer - Discharge Plan Condition: Good Disposition: HOME Patient Education Materials: Migraine Headache (ED) Forms: *Work Release Referrals: Alyce Navarro NP [Primary Care Provider] - Additional Instructions: follow up with neurology Take Tylenol or ibuprofen for pain every 6 hours Return to ED if develop fever, neck stiffness, or any new or worsening symptoms - Billing Disposition and Condition Condition: GOOD Disposition: Home
[2018-01-17 00:05] VITALS: BP 110/61
== END 2018-01-17 00:05 | disposition home or self-care (01) ==
LOC: ED 19:58
DX: R51 Headache (principal); F17.210 Nicotine dependence, cigarettes, uncomplicated
CPT/HCPCS: 36415; 80053; 85025; 96374; 99283; J1200; J2270; J2765